=== PATIENT | female | born 1970 | race Caucasian/White ===

== ENCOUNTER 2017-11-12 21:28 | Emergency (ER) | payer SELFPAY ==
[2017-11-12 21:54] LABS: ADD MAN DIFF? NO
[2017-11-12] MEDS: METOCLOPRAMIDE HCL 10 MG/2 ML VIAL. IV (21:54)
[2017-11-12] MEDS: MORPHINE SULFATE 4 MG/ML DISP.SYRIN. IV (21:54)
[2017-11-12] MEDS: KETOROLAC 30 MG/ML INJ. IV (21:55)
[2017-11-12] MEDS: diphenhydrAMINE 50 MG/ML VIAL IVP (21:55)
[2017-11-12] MEDS: IV NORMAL SALINE 1000ML BAG 1,000 ML IV (21:55)
[2017-11-12 21:57] LABS: BASO # 0.1 x10^3/uL (0.0-0.2); BASO % 1 % (0-3); EOS # 0.2 x10^3/uL (0.0-0.7); EOS % 3 % (0-3); HEMATOCRIT 41.7 % (36.0-47.0); HEMOGLOBIN 14.1 g/dL (12.0-15.5); LYMPH # 3.7 x10^3/uL (1.0-4.8); LYMPH % 40 % (24-48); MEAN CORPUSCULAR HEMOGLOBIN 32 pg (25-35); MEAN CORPUSCULAR HGB CONC 34 g/dL (31-37); MEAN CORPUSCULAR VOLUME 95 fL (79-100); MONO # 0.5 x10^3/uL (0.0-1.1); MONO % 5 % (0-9); NEUT # 4.7 x10^3uL (1.8-7.7); NEUT % 51 % (31-73); PLATELET COUNT 256 x10^3/uL (140-400); RED CELL DISTRIBUTION WIDTH 14.1 % (11.5-14.5); WHITE BLOOD COUNT 9.1 x10^3/uL (4.0-11.0)
[2017-11-12 22:04] LABS: ANION GAP 11 (6-14); BLOOD UREA NITROGEN 19 mg/dL (7-20); BUN/CREATININE RATIO 24 (6-20); CALCIUM 9.8 mg/dL (8.5-10.1); CARBON DIOXIDE 26 mmol/L (21-32); CHLORIDE 104 mmol/L (98-107); CREATININE 0.8 mg/dL (0.6-1.0); GFR 76.6; GLUCOSE 103 mg/dL (70-99); POTASSIUM 4.2 mmol/L (3.5-5.1); SODIUM 141 mmol/L (136-145)
[2017-11-12 22:11] LABS: URINE HCG POC HCG NEGATIVE (Negative)
[2017-11-12 22:12] LABS: ALBUMIN 4.2 g/dL (3.4-5.0); ALBUMIN/GLOBULIN RATIO 1.2 (1.0-1.7); ALK PHOS 115 U/L (46-116); ALT (SGPT) 105 U/L (14-59); AST (SGOT) 39 U/L (15-37); TOTAL BILIRUBIN 0.2 mg/dL (0.2-1.0); TOTAL PROTEIN 7.8 g/dL (6.4-8.2)
[2017-11-12 22:19] LABS: BILIRUBIN,URINE NEGATIVE (NEG); CLARITY,URINE CLEAR; COLOR,URINE YELLOW; GLUCOSE,URINE NEGATIVE (NEG); NITRITE,URINE NEGATIVE (NEG); PROTEIN,URINE NEGATIVE (NEG-TRACE); UROBILINOGEN,URINE 0.2 mg/dL (0.2 mg/dL)
[2017-11-12 22:25] LABS: BACTERIA,URINE FEW /HPF (0-FEW); WBC,URINE OCC /HPF (0-4)
[2017-11-12 22:26] LABS: SQUAMOUS EPITHELIAL CELL,UR FEW /LPF
== END 2017-11-12 23:13 | disposition home or self-care (01) ==
LOC: ER 23:13
DX: R51 Headache (principal); R11.0 Nausea; G40.909 Epilepsy, unspecified, not intractable, without status epilepticus; Z90.49 Acquired absence of other specified parts of digestive tract; Z88.8 Allergy status to other drugs, medicaments and biological substances; Z88.5 Allergy status to narcotic agent
CPT/HCPCS: 36415; 70450; 80053; 81001; 81025; 85025; 96361; 96374; 96375; 99285-25; J1200; J1885; J2270; J2765; J7030

== ENCOUNTER 2018-01-04 19:10 | Emergency (ER) | payer SELFPAY, OTHER ==
[2018-01-04 20:43] LABS: ADD MAN DIFF? NO
[2018-01-04 20:44] LABS: BASO # 0.1 x10^3/uL (0.0-0.2); BASO % 1 % (0-3); EOS # 0.2 x10^3/uL (0.0-0.7); EOS % 3 % (0-3); HEMATOCRIT 40.9 % (36.0-47.0); HEMOGLOBIN 14.1 g/dL (12.0-15.5); LYMPH # 2.9 x10^3/uL (1.0-4.8); LYMPH % 33 % (24-48); MEAN CORPUSCULAR HEMOGLOBIN 32 pg (25-35); MEAN CORPUSCULAR HGB CONC 35 g/dL (31-37); MEAN CORPUSCULAR VOLUME 94 fL (79-100); MONO # 0.5 x10^3/uL (0.0-1.1); MONO % 5 % (0-9); NEUT # 5.2 x10^3uL (1.8-7.7); NEUT % 59 % (31-73); PLATELET COUNT 215 x10^3/uL (140-400); RED BLOOD COUNT 4.36 x10^6/uL (3.50-5.40); RED CELL DISTRIBUTION WIDTH 13.9 % (11.5-14.5); WHITE BLOOD COUNT 8.8 x10^3/uL (4.0-11.0)
[2018-01-04 20:57] LABS: D-DIMER < 0.27 ug/mlFEU (0.00-0.50)
[2018-01-04 20:57] LABS: ANION GAP 9 (6-14); BLOOD UREA NITROGEN 10 mg/dL (7-20); BUN/CREATININE RATIO 14 (6-20); CALCIUM 9.6 mg/dL (8.5-10.1); CARBON DIOXIDE 26 mmol/L (21-32); CHLORIDE 107 mmol/L (98-107); CREATININE 0.7 mg/dL (0.6-1.0); GFR 89.3; GLUCOSE 99 mg/dL (70-99); POTASSIUM 3.6 mmol/L (3.5-5.1); SODIUM 142 mmol/L (136-145)
[2018-01-04 21:03] LABS: ALBUMIN 3.9 g/dL (3.4-5.0); ALBUMIN/GLOBULIN RATIO 1.3 (1.0-1.7); ALK PHOS 94 U/L (46-116); ALT (SGPT) 34 U/L (14-59); AST (SGOT) 21 U/L (15-37); TOTAL BILIRUBIN 0.2 mg/dL (0.2-1.0); TOTAL PROTEIN 6.8 g/dL (6.4-8.2)
[2018-01-04 21:04] LABS: TROPONINI < 0.017 ng/mL (0.000-0.055)
[2018-01-04 21:11] LABS: THYROID STIM HORMONE (TSH) 0.786 uIU/mL (0.358-3.74)
[2018-01-05 00:28] LABS: TROPONINI < 0.017 ng/mL (0.000-0.055)
== END 2018-01-05 00:44 | disposition home or self-care (01) ==
LOC: ER 01-05 00:44
DX: R00.2 Palpitations (principal); G89.29 Other chronic pain; R03.0 Elevated blood-pressure reading, without diagnosis of hypertension; M79.602 Pain in left arm; M54.5 Low back pain; G40.909 Epilepsy, unspecified, not intractable, without status epilepticus; Z90.49 Acquired absence of other specified parts of digestive tract; Z88.5 Allergy status to narcotic agent; Z88.8 Allergy status to other drugs, medicaments and biological substances
CPT/HCPCS: 36415; 71046; 80053; 84443; 84484; 85025; 85379; 93005; 99285-25

== ENCOUNTER 2018-09-17 19:45 | Emergency (ER) | payer SELFPAY ==
[~2018-09-17] VITALS: Ht 160 cm; Wt 56.2 kg
[~2018-09-17 19:45] MED LIST: BUTA1CAP57 PO; CEPH-264 PO; HYDR-3164 PO; PHEN100C PO; PRED20TA PO
[2018-09-17] MEDS: IPRATRPIUM/ALBUTEROL 0.5/2.5MG 3 ML NEBU. NEB ONE (20:40)
--- NOTE | 2018-09-17 20:50 | PHYS DOC ---
Past Medical History Past Medical History: Seizure Additional Past Medical Histor: epilepsy, kidney infections, shingles, pinched nerve in neck Past Surgical History: Appendectomy, Additional Past Surgical Histo: L. lung collapsed Smoking: Less than 1pk/day Alcohol Use: None Drug Use: None Adult General Chief Complaint Chief Complaint: FLU SYMPTOM HPI HPI 47-year-old female resents to ER with complaints of one month history of cold- like symptoms. Patient reports today she had new onset of chest tightness which she hasn't experienced during the past month. Patient states she had been evaluated by her primary care physician on one 09/09/17 and was placed on Levaquin and prednisone. Pt reports her sxs persisted so she was evaluated by PCP yest. and was started on a Zpak. Pt reports today she woke having upper chest tightness- she denies radiation into neck or upper extremities. Patient reports she has chronic neck pain denying any acute change. Pt reports she has had chills denies fever. She has also had sore throat, fatigue, and prod. cough with yellow phlegm. She denies urinary symptoms and reports she has gone through menopause and does not have monthly cycles. Patient denies swelling in extremities. Patient denies dizziness or lightheadedness. She reports she did take naproxen earlier today with minimal relief in symptoms. She reports she is a daily cigarette smoker. She reports her mom had VT at age of 48 y/o. She denies travel. Review of Systems Review of Systems Constitutional: Denies fever. Reports fatigue and chills Eyes: Denies change in visual acuity, redness, or eye pain [] HENT: Reports sore throat and sinus congestion/drainage Respiratory: Reports prod. cough. Denies SOA Cardiovascular: Reports chest tightness GI: Denies abdominal pain, nausea, vomiting, bloody stools or diarrhea [] : Denies dysuria or hematuria [] Musculoskeletal: Denies back pain or joint pain. Reports chronic neck pain- denies acute change Integument: Denies rash, swelling or skin lesions [] Neurologic: Denies headache, focal weakness or sensory changes [] All other systems were reviewed and found to be within normal limits, except as documented in this note. Current Medications Current Medications Current Medications Medications (Trade) Dose Ordered Sig/Ifrah Start Time Stop Time Status Last Admin Dose Admin Acetaminophen/ Hydrocodone Bitart (Lortab 5/325) 1 tab 1X ONCE 09/17/18 23:00 09/17/18 23:01 DC 09/17/18 22:39 1 TAB Albuterol/ Ipratropium (Duoneb) 3 ml 1X ONCE 09/17/18 20:30 09/17/18 20:31 DC 09/17/18 20:40 3 ML Oxymetazoline HCl (Afrin) 2 spray 1X ONCE 09/17/18 23:00 09/17/18 23:01 DC 09/17/18 22:39 1 SPRAY Prednisone (Prednisone) 50 mg 1X ONCE 09/17/18 20:30 09/17/18 20:31 DC 09/17/18 21:19 50 MG Allergies Allergies Allergies Coded Allergies Type Severity Reaction Last Updated Verified carbamazepine Allergy Intermediate MUSCLE PAIN 08/08/14 Yes codeine Allergy Intermediate rash 08/08/14 Yes Physical Exam Physical Exam Constitutional: Well developed, well nourished, no acute distress, non-toxic appearance. [] HENT: Normocephalic, atraumatic, bilateral ears normal, oropharynx moist- pharyngeal/tonsillar erythema with bilat. tonsillar swelling, no oral exudates, bilat. turbinates swollen- nares patent bilat. no drainage Eyes: Pupils equal, conjunctiva normal, no discharge. [] Neck: Normal range of motion, no tenderness, supple, no stridor Cardiovascular: Heart rate regular rhythm, no murmur [] Lungs & Thorax: Bilateral breath sounds clear to auscultation- diminished in bases. Resp. equal/nonlabored Abdomen: Bowel sounds normal, soft, no tenderness Skin: Warm, dry, no erythema, no rash. [] Back: No tenderness, no CVA tenderness. [] Extremities: No tenderness, no cyanosis, no clubbing, ROM intact, no edema. [] Neurologic: Alert and oriented X 3, normal motor function, normal sensory function, no focal deficits noted. [] Psychologic: Affect normal, judgement normal, mood normal. [] Current Patient Data Vital Signs Vital Signs Date Time Temp Pulse Resp B/P (MAP) Pulse Ox O2 Delivery O2 Flow Rate FiO2 09/17/18 23:04 90 16 110/58 (75) 99 Room Air 09/17/18 19:55 98.7 98.7 Lab Values Laboratory Tests Test 09/17/18 21:26 09/17/18 22:22 Group A Streptococcus Rapid Negative (NEGATIVE) White Blood Count 11.6 x10^3/uL (4.0-11.0) H Red Blood Count 4.40 x10^6/uL (3.50-5.40) Hemoglobin 14.3 g/dL (12.0-15.5) Hematocrit 41.9 % (36.0-47.0) Mean Corpuscular Volume 95 fL (79-100) Mean Corpuscular Hemoglobin 33 pg (25-35) Mean Corpuscular Hemoglobin Concent 34 g/dL (31-37) Red Cell Distribution Width 14.6 % (11.5-14.5) H Platelet Count 230 x10^3/uL (140-400) Neutrophils (%) (Auto) 58 % (31-73) Lymphocytes (%) (Auto) 34 % (24-48) Monocytes (%) (Auto) 5 % (0-9) Eosinophils (%) (Auto) 3 % (0-3) Basophils (%) (Auto) 1 % (0-3) Neutrophils # (Auto) 6.7 x10^3uL (1.8-7.7) Lymphocytes # (Auto) 4.0 x10^3/uL (1.0-4.8) Monocytes # (Auto) 0.6 x10^3/uL (0.0-1.1) Eosinophils # (Auto) 0.3 x10^3/uL (0.0-0.7) Basophils # (Auto) 0.1 x10^3/uL (0.0-0.2) Sodium Level 141 mmol/L (136-145) Potassium Level 3.9 mmol/L (3.5-5.1) Chloride Level 103 mmol/L (98-107) Carbon Dioxide Level 26 mmol/L (21-32) Anion Gap 12 (6-14) Blood Urea Nitrogen 9 mg/dL (7-20) Creatinine 0.8 mg/dL (0.6-1.0) Estimated GFR (Cockcroft-Gault) 76.6 BUN/Creatinine Ratio 11 (6-20) Glucose Level 105 mg/dL (70-99) H Calcium Level 9.8 mg/dL (8.5-10.1) Total Bilirubin 0.2 mg/dL (0.2-1.0) Aspartate Amino Transferase (AST) 14 U/L (15-37) L Alanine Aminotransferase (ALT) 27 U/L (14-59) Alkaline Phosphatase 106 U/L (46-116) Troponin I Quantitative < 0.017 ng/mL (0.000-0.055) Total Protein 7.0 g/dL (6.4-8.2) Albumin 4.0 g/dL (3.4-5.0) Albumin/Globulin Ratio 1.3 (1.0-1.7) Laboratory Tests 09/17/18 22:22 Laboratory Tests 09/17/18 22:22 EKG EKG EKG obtained 09/17/18 at [address] Clark Sinus rhythm [place]. T wave abnorm. Rate 86 No STEMI Radiology/Procedures Radiology/Procedures PROCEDURE: CHEST PA & LATERAL Exam performed: 2 views of the chest. Indication: Chest pain and cough x a week Date of Service: 09/17/2018 8:16 PM . Comparison : Two-view chest from 01/04/2018 Findings: PA and lateral radiographs of the chest reveal a normal cardiomediastinal contour. The lungs are clear. No pleural fluid is seen. The visualized osseous structures are unremarkable. Impression: No acute cardiopulmonary process seen. Electronically signed by: Nelida Torre MD (09/17/2018 9:45 PM) [facility] DICTATED and SIGNED BY: NELIDA TORRE MD DATE: 09/17/182143 Course & Med Decision Making Course & Med Decision Making Pertinent Labs and Imaging studies reviewed. (See chart for details) 2205: Reevaluation patient reports DuoNeb treatment has improved her chest tightness and she feels like she is taking deeper breaths. Patient remains anxious when discussing ongoing symptoms and frustration. In-depth conversation had with patient regarding possible viral symptoms as her chest x-ray report had no acute findings. Patient's lungs are clear bilateral with increased air movement throughout all lung [place]. Patient has complaints of sinus pressure with headache. Patient states she had been using Flonase for the past few days but feels like it causes her symptoms to worsen. Will provide patient with dose of Afrin in bilateral nares while in the ER and then advised patient to avoid any nasal spray for the next few days to allow sinuses rest. Will also provide patient with dose of [place]. Patient is denying any shortness of air. Labs obtained by this provider which has delayed test results. Patient is in no visible distress nontoxic in appearance. Dragon Disclaimer [place] Disclaimer This electronic medical record was generated, in whole or in part, using a voice recognition dictation system. Departure Departure Impression: Primary Impression: Cough Additional Impression: Viral syndrome Disposition: 01 HOME, SELF-CARE Condition: STABLE Referrals: ROSS RABAGO APRN (PCP) Patient Instructions: Cough, Adult, Smoking Cessation, Viral Syndrome Additional Instructions: Drink plenty of water. Tylenol and/or ibuprofen as needed for pain and fever control as directed on container. Avoid nasal medications for the next few days to allow sinuses to rest. Continue use of your inhaler as prescribed. Avoid smoking. Follow-up with primary doctor as needed. Scripts Prednisone (PREDNISONE) 50 Mg Tablet 1 TAB PO DAILY, #4 TAB 0 Refills Start on 09/18/18 Prov: TREV ANNE APRN 09/17/18 Problem Qualifiers TREV ANNE APRN Sep 17, 2018 20:50
[2018-09-17] MEDS: predniSONE 10 MG TABLET PO ONE (21:19)
--- NOTE | 2018-09-17 21:49 | RAD ---
Exam performed: 2 views of the chest. Indication: Chest pain and cough x a week Date of Service: 09/17/2018 8:16 PM . Comparison : Two-view chest from 01/04/2018 Findings: PA and lateral radiographs of the chest reveal a normal cardiomediastinal contour. The lungs are clear. No pleural fluid is seen. The visualized osseous structures are unremarkable. Impression: No acute cardiopulmonary process seen. Electronically signed by: Nelida Torre MD (09/17/2018 9:45 PM) [facility]
[2018-09-17 22:36] LABS: BASO # 0.1 x10^3/uL (0.0-0.2); BASO % 1 % (0-3); EOS # 0.3 x10^3/uL (0.0-0.7); EOS % 3 % (0-3); HEMATOCRIT 41.9 % (36.0-47.0); HEMOGLOBIN 14.3 g/dL (12.0-15.5); LYMPH % 34 % (24-48); MEAN CORPUSCULAR HEMOGLOBIN 33 pg (25-35); MEAN CORPUSCULAR HGB CONC 34 g/dL (31-37); MEAN CORPUSCULAR VOLUME 95 fL (79-100); MONO # 0.6 x10^3/uL (0.0-1.1); MONO % 5 % (0-9); NEUT # 6.7 x10^3uL (1.8-7.7); NEUT % 58 % (31-73); PLATELET COUNT 230 x10^3/uL (140-400); RED CELL DISTRIBUTION WIDTH 14.6 % (11.5-14.5); WHITE BLOOD COUNT 11.6 x10^3/uL (4.0-11.0)
[2018-09-17] MEDS: HYDROcodone/APAP 5/325MG 1 TAB TABLET PO ONE (22:39)
[2018-09-17] MEDS: OXYMETAZOLINE 0.05% NASAL SPRAY 30ML BOTTLE. NS ONE (22:39)
[2018-09-17 22:47] LABS: CALCIUM 9.8 mg/dL (8.5-10.1); CREATININE 0.8 mg/dL (0.6-1.0); GFR 76.6; POTASSIUM 3.9 mmol/L (3.5-5.1)
[2018-09-17 22:51] LABS: ALBUMIN/GLOBULIN RATIO 1.3 (1.0-1.7); TOTAL BILIRUBIN 0.2 mg/dL (0.2-1.0)
[2018-09-17 23:04] VITALS: BP 110/58
[2018-09-17] MEDS ORDERED: PRED50TA PO (23:17)
--- NOTE | 2018-09-20 11:34 | EKG ---
[facility] [address] [place] [address] Test Date: 2018-09-17 Test Time: 20:32:54 Pat Name: JEFRY RASHID Department: Room: Gender: F Form Raiser: : [phone] Requested By: TREV ANNE Order Number: [id number] Reading MD: Measurements Intervals [place] Rate: 86 P: 29 KS: 130 QRS: 74 QRSD: 86 T: 17 QT: 320 QTc: 385 Interpretive Statements SINUS RHYTHM NON SPECIFIC T ABNORMALITY BORDERLINE ECG No previous ECG available for comparison
== END 2018-09-17 23:25 | disposition home or self-care (01) ==
LOC: ER 19:45
DX: B34.9 Viral infection, unspecified (principal); R05 Cough; R07.89 Other chest pain; G89.29 Other chronic pain; M54.2 Cervicalgia; F17.210 Nicotine dependence, cigarettes, uncomplicated; Z90.89 Acquired absence of other organs; Z98.890 Other specified postprocedural states; Z88.8 Allergy status to other drugs, medicaments and biological substances; Z88.5 Allergy status to narcotic agent
CPT/HCPCS: 36415; 71046; 80053; 84484; 85025; 87070; 87880; 93005; 94640; J7512; J7620; 99284-25

== ENCOUNTER 2018-09-24 17:19 | Emergency (ER) | payer SELFPAY ==
[~2018-09-24] VITALS: Ht 160 cm; Wt 56.2 kg
[~2018-09-24 17:19] MED LIST changes: +PRED50TA PO
[2018-09-24 18:51] VITALS: BP 122/76
[2018-09-24] MEDS ORDERED: HYDR-2761 PO (19:28)
[2018-09-24] MEDS ORDERED: PRED50TA PO (19:28)
--- NOTE | 2018-09-24 19:28 | PHYS DOC ---
Past Medical History Past Medical History: Seizure Additional Past Medical Histor: epilepsy, kidney infections, shingles, pinched nerve in neck Past Surgical History: Appendectomy, Additional Past Surgical Histo: L. lung collapsed Alcohol Use: None Drug Use: None Adult General Chief Complaint Chief Complaint: FACE PAIN HPI HPI Patient is a 47 year old [f__sex] who presents with [] Review of Systems Review of Systems Constitutional: Denies fever or chills [] Eyes: Denies change in visual acuity, redness, or eye pain [] HENT: Denies nasal congestion or sore throat [] Respiratory: Denies cough or shortness of breath [] Cardiovascular: No additional information not addressed in HPI [] GI: Denies abdominal pain, nausea, vomiting, bloody stools or diarrhea [] : Denies dysuria or hematuria [] Musculoskeletal: Denies back pain or joint pain [] Integument: Denies rash or skin lesions [] Neurologic: Denies headache, focal weakness or sensory changes [] Endocrine: Denies polyuria or polydipsia [] All other systems were reviewed and found to be within normal limits, except as documented in this note. Allergies Allergies Allergies Coded Allergies Type Severity Reaction Last Updated Verified carbamazepine Allergy Intermediate MUSCLE PAIN 08/08/14 Yes codeine Allergy Intermediate rash 08/08/14 Yes Physical Exam Physical Exam Constitutional: Well developed, well nourished, no acute distress, non-toxic appearance. [] HENT: Normocephalic, atraumatic, bilateral external ears normal, oropharynx moist, no oral exudates, nose normal. [] Eyes: PERRLA, EOMI, conjunctiva normal, no discharge. [] Neck: Normal range of motion, no tenderness, supple, no stridor. [] Cardiovascular:Heart rate regular rhythm, no murmur [] Lungs & Thorax: Bilateral breath sounds clear to auscultation [] Abdomen: Bowel sounds normal, soft, no tenderness, no masses, no pulsatile masses. [] Skin: Warm, dry, no erythema, no rash. [] Back: No tenderness, no CVA tenderness. [] Extremities: No tenderness, no cyanosis, no clubbing, ROM intact, no edema. [] Neurologic: Alert and oriented X 3, normal motor function, normal sensory function, no focal deficits noted. [] Psychologic: Affect normal, judgement normal, mood normal. [] Current Patient Data Vital Signs Vital Signs Date Time Temp Pulse Resp B/P (MAP) Pulse Ox O2 Delivery O2 Flow Rate FiO2 09/24/18 18:51 98.6 118 122/76 (91) 98 98.6 09/24/18 18:40 20 Room Air EKG EKG [] Radiology/Procedures Radiology/Procedures [] Course & Med Decision Making Course & Med Decision Making Pertinent Labs and Imaging studies reviewed. (See chart for details) [] Dragon Disclaimer Dragon Disclaimer This electronic medical record was generated, in whole or in part, using a voice recognition dictation system. Departure Departure Impression: Primary Impression: Frontal sinus pain Additional Impressions: Acute maxillary sinusitis, unspecified Sinus pressure Disposition: HOME, SELF-CARE Condition: STABLE Referrals: NUNO CALLE MD Patient Instructions: Sinus Headache, [place] Additional Instructions: Fill the prescription and use as directed. Follow up with Dr. Calle for further evaluation of chronic sinus problems and pain. Scripts Hydrocodone Bit/Acetaminophen (HYDROCODONE-APAP 5-325 ) 1 Tab Tablet 1 TAB PO PRN Q6HRS PRN for PAIN for 3 Days, #12 TAB 0 Refills Prov: CHEMO WRIGHT [employer]ADER 09/24/18 Prednisone (PREDNISONE) 50 Mg Tablet 1 TAB PO DAILY, #5 TAB 0 Refills Prov: [employer] WR[employer] LEADER 09/24/18 Problem Qualifiers Additional Impressions: Acute maxillary sinusitis, unspecified Recurrence: recurrent Qualified Codes: J01.01 - Acute recurrent maxillary sinusitis [employer] WR[employer]ER Sep 24, 2018 19:28
== END 2018-09-24 20:57 | disposition home or self-care (01) ==
LOC: ER 17:19
DX: J01.01 Acute recurrent maxillary sinusitis (principal); J01.10 Acute frontal sinusitis, unspecified; Z90.89 Acquired absence of other organs; Z98.890 Other specified postprocedural states; Z88.5 Allergy status to narcotic agent; Z88.8 Allergy status to other drugs, medicaments and biological substances
CPT/HCPCS: 99283

== ENCOUNTER 2018-11-27 14:05 | Emergency (ER) | payer SELFPAY ==
[~2018-11-27] VITALS: Ht 160 cm; Wt 56.2 kg
[~2018-11-27 14:05] MED LIST changes: +HYDR-2761 PO
--- NOTE | 2018-11-27 15:22 | PHYS DOC ---
Past Medical History Past Medical History: Seizure Additional Past Medical Histor: epilepsy, kidney infections, shingles, pinched nerve in neck Past Surgical History: No Surgical History, Appendectomy, Additional Past Surgical Histo: L. lung collapsed Alcohol Use: None Drug Use: None Adult General Chief Complaint Chief Complaint: ABDOMINAL PAIN HPI HPI Patient is a 48 year old female who presents to the emergency room with complaints of diffuse abdominal pain and bloating for the last 2 weeks. She reports nausea, and a decreased appetite in addition to fluctuating stools consisting of diarrhea, soft stools, and constipation. She denies any rectal bleeding. She states she has had lots of gas and her primary care doctor sent her for a pelvic ultrasound on November 16, 2018. Patient reports that the ultrasound revealed normal ovaries and no acute findings. Currently, she rates her pain 8 out of 10 on the pain scale she states there are no alleviating or aggravating factors. She does have a previous diagnosis of irritable bowel syndrome, and polyps in her colon. Review of Systems Review of Systems Constitutional: Denies fever or chills [] Eyes: Denies changes HENT: Denies nasal congestion or sore throat [] Respiratory: Denies cough or shortness of breath [] Cardiovascular: No additional information not addressed in HPI [] GI: See history of present illness : Denies dysuria or hematuria [] Musculoskeletal: Denies back pain Integument: Denies rash or skin lesions [] Neurologic: Denies headache Current Medications Current Medications Current Medications Medications (Trade) Dose Ordered Sig/Ifrah Start Time Stop Time Status Last Admin Dose Admin Fentanyl Citrate (Fentanyl 2ml Vial) 50 mcg 1X ONCE 11/27/18 15:45 11/27/18 15:48 DC 11/27/18 16:08 50 MCG Info (CONTRAST GIVEN -- Rx MONITORING) 1 each PRN DAILY PRN 11/27/18 16:15 11/29/18 16:14 Iohexol (Omnipaque 300 Mg/ml) 75 ml 1X ONCE 11/27/18 16:15 11/27/18 16:16 DC 11/27/18 16:15 75 ML Ondansetron HCl (Zofran) 4 mg 1X ONCE 11/27/18 15:45 11/27/18 15:48 DC 11/27/18 16:07 4 MG Sodium Chloride 1,000 ml @ 1,000 mls/hr 1X ONCE 11/27/18 15:45 11/27/18 16:44 DC 11/27/18 16:09 1,000 MLS/HR Allergies Allergies Allergies Coded Allergies Type Severity Reaction Last Updated Verified carbamazepine Allergy Intermediate MUSCLE PAIN 08/08/14 Yes codeine Allergy Intermediate rash 08/08/14 Yes Physical Exam Physical Exam Constitutional: Well developed, well nourished, no acute distress, non-toxic appearance. [] HENT: Normocephalic, atraumatic, bilateral external ears normal, oropharynx moist, no oral exudates, nose normal. [] Eyes: PERRLA, conjunctiva normal, no discharge. [] Neck: Normal range of motion, no tenderness, supple, no stridor. [] Cardiovascular:Heart rate regular rhythm, no murmur [] Lungs & Thorax: Bilateral breath sounds clear to auscultation [] Abdomen: Bowel sounds normal, soft, no masses, no pulsatile masses; left upper and lower quadrant tenderness to palpation, no guarding, no rebound tenderness Skin: Warm, dry, no erythema, no rash. [] Extremities: No cyanosis, ROM intact, no edema. [] Neurologic: Alert and oriented X 3, no focal deficits noted. [] Psychologic: Affect normal, judgement normal, mood normal. [] Current Patient Data Vital Signs Vital Signs Date Time Temp Pulse Resp B/P (MAP) Pulse Ox O2 Delivery O2 Flow Rate FiO2 11/27/18 16:08 16 98 11/27/18 14:13 98.6 108 137/76 (96) Room Air 98.6 Lab Values Laboratory Tests Test 11/27/18 15:17 11/27/18 15:50 Urine Collection Type Unknown Urine Color Yellow Urine Clarity Clear Urine pH 8.0 Urine Specific [place] 1.010 Urine Protein Negative mg/dL (NEG-TRACE) Urine Glucose (UA) Negative mg/dL (NEG) Urine Ketones (Stick) Negative mg/dL (NEG) Urine Blood Trace (NEG) Urine Nitrite Negative (NEG) Urine Bilirubin Negative (NEG) Urine Urobilinogen Dipstick 0.2 mg/dL (0.2 mg/dL) Urine Leukocyte Esterase Trace (NEG) Urine RBC 1-2 /HPF (0-2) Urine WBC Occ /HPF (0-4) Urine Squamous Epithelial Cells Mod /LPF Urine Bacteria Moderate /HPF (0-FEW) White Blood Count 7.4 x10^3/uL (4.0-11.0) Red Blood Count 4.51 x10^6/uL (3.50-5.40) Hemoglobin 14.3 g/dL (12.0-15.5) Hematocrit 42.8 % (36.0-47.0) Mean Corpuscular Volume 95 fL (79-100) Mean Corpuscular Hemoglobin 32 pg (25-35) Mean Corpuscular Hemoglobin Concent 33 g/dL (31-37) Red Cell Distribution Width 14.0 % (11.5-14.5) Platelet Count 218 x10^3/uL (140-400) Neutrophils (%) (Auto) 57 % (31-73) Lymphocytes (%) (Auto) 35 % (24-48) Monocytes (%) (Auto) 6 % (0-9) Eosinophils (%) (Auto) 3 % (0-3) Basophils (%) (Auto) 1 % (0-3) Neutrophils # (Auto) 4.2 x10^3uL (1.8-7.7) Lymphocytes # (Auto) 2.6 x10^3/uL (1.0-4.8) Monocytes # (Auto) 0.4 x10^3/uL (0.0-1.1) Eosinophils # (Auto) 0.2 x10^3/uL (0.0-0.7) Basophils # (Auto) 0.0 x10^3/uL (0.0-0.2) Sodium Level 139 mmol/L (136-145) Potassium Level 4.5 mmol/L (3.5-5.1) Chloride Level 102 mmol/L (98-107) Carbon Dioxide Level 29 mmol/L (21-32) Anion Gap 8 (6-14) Blood Urea Nitrogen 7 mg/dL (7-20) Creatinine 0.7 mg/dL (0.6-1.0) Estimated GFR (Cockcroft-Gault) 88.9 BUN/Creatinine Ratio 10 (6-20) Glucose Level 102 mg/dL (70-99) H Calcium Level 9.3 mg/dL (8.5-10.1) Total Bilirubin 0.3 mg/dL (0.2-1.0) Aspartate Amino Transferase (AST) 18 U/L (15-37) Alanine Aminotransferase (ALT) 24 U/L (14-59) Alkaline Phosphatase 76 U/L (46-116) Total Protein 6.9 g/dL (6.4-8.2) Albumin 4.0 g/dL (3.4-5.0) Albumin/Globulin Ratio 1.4 (1.0-1.7) Lipase 161 U/L (73-393) Laboratory Tests 11/27/18 15:50 Laboratory Tests 11/27/18 15:50 EKG EKG [] Radiology/Procedures Radiology/Procedures PROCEDURE: CT ABD PELV W/ IV CONTRST ONLY CT abdomen pelvis with contrast dated 11/27/2018. Comparison made to 02/21/2015. Clinical indication: Left-sided abdominal pain. TECHNIQUE: Contiguous axial imaging of the abdomen and pelvis performed after the administration of 75 cc Omnipaque 300. One or more of the following individualized dose reduction techniques were utilized for this examination: 1. Automated exposure control 2. Adjustment of the mA and/or kV according to patient size 3. Use of iterative reconstruction technique. FINDINGS: Limited images of lung bases show mild emphysema. Minimal linear opacity in the lower lobes, likely scar or atelectasis. Liver, spleen, pancreas, adrenal glands, gallbladder and kidneys are unremarkable. No hydronephrosis. Mild cortical scarring at the midpole right kidney, unchanged. Unopacified GI tract normal in caliber and contour. No focal bowel wall thickening. No inflammatory stranding in the mesentery. No ascites or lymphadenopathy. Abdominal aorta normal in caliber. There are a few scattered diverticula within the distal colon. The appendix is not clearly identified. No inflammatory changes in the right lower quadrant. There is a pelvis show mildly distended urinary bladder. Uterus and adnexa are unremarkable. No free fluid or lymphadenopathy. Bone windows show no acute findings. IMPRESSION: 1. No acute abnormality of abdomen or pelvis. 2. Minimal diverticulosis with no evidence of acute diverticulitis.[] Course & Med Decision Making Course & Med Decision Making Pertinent Labs and Imaging studies reviewed. (See chart for details) dx: non specific abdominal pain, IBS Ddx: pancreatitis, SBO, gastritis, diverticulitis, UTI, kidney stone, hernia Labs and CT were not concerning for any acute findings. Encouraged pt to follow up with GI doctor for further evaluation, [] Dragon Disclaimer Dragon Disclaimer This electronic medical record was generated, in whole or in part, using a voice recognition dictation system. Departure Departure Impression: Primary Impression: Abdominal pain Additional Impression: IBS (irritable bowel syndrome) Disposition: 01 HOME, SELF-CARE Condition: STABLE Referrals: ROSS RABAGO APRN (PCP) AG PURDY MD Patient Instructions: Abdominal Pain (Nonspecific), Irritable Bowel Syndrome- Brief Additional Instructions: Follow up with Dr. Purdy for further evaluation of ongoing abdominal pain. Return to the ER if symptoms worsen. Problem Qualifiers Primary Impression: Abdominal pain Abdominal location: unspecified location Qualified Codes: R10.9 - Unspecified abdominal pain Additional Impression: IBS (irritable bowel syndrome) Irritable bowel syndrome type: with both diarrhea and constipation Qualified Codes: K58.2 - Mixed irritable bowel syndrome CHEMO WRIGHT APRN Nov 27, 2018 15:22
[2018-11-27] MEDS ORDERED: fentaNYL PF VIAL 100 MCG/2 ML VIAL IV ONE ×2 (15:45→18:00)
[2018-11-27] MEDS ORDERED: ONDANSETRON PF 4 MG/2 ML VIAL. IV ONE (15:45)
[2018-11-27] MEDS ORDERED: IV NORMAL SALINE 1000ML BAG 1,000 ML IV ONE (15:45)
[2018-11-27 15:56] LABS: BILIRUBIN,URINE NEGATIVE (NEG); CLARITY,URINE CLEAR; COLOR,URINE YELLOW; NITRITE,URINE NEGATIVE (NEG); PROTEIN,URINE NEGATIVE (NEG-TRACE); UROBILINOGEN,URINE 0.2 mg/dL (0.2 mg/dL)
[2018-11-27 16:05] LABS: BACTERIA,URINE MODERATE /HPF (0-FEW); SQUAMOUS EPITHELIAL CELL,UR MOD /LPF
[2018-11-27 16:06] LABS: WBC,URINE OCC /HPF (0-4)
[2018-11-27 16:07] LABS: BASO % 1 % (0-3); EOS # 0.2 x10^3/uL (0.0-0.7); EOS % 3 % (0-3); HEMATOCRIT 42.8 % (36.0-47.0); HEMOGLOBIN 14.3 g/dL (12.0-15.5); LYMPH # 2.6 x10^3/uL (1.0-4.8); LYMPH % 35 % (24-48); MEAN CORPUSCULAR HEMOGLOBIN 32 pg (25-35); MEAN CORPUSCULAR HGB CONC 33 g/dL (31-37); MEAN CORPUSCULAR VOLUME 95 fL (79-100); MONO # 0.4 x10^3/uL (0.0-1.1); MONO % 6 % (0-9); NEUT # 4.2 x10^3uL (1.8-7.7); NEUT % 57 % (31-73); PLATELET COUNT 218 x10^3/uL (140-400); RED BLOOD COUNT 4.51 x10^6/uL (3.50-5.40); WHITE BLOOD COUNT 7.4 x10^3/uL (4.0-11.0)
[2018-11-27 16:14] LABS: CALCIUM 9.3 mg/dL (8.5-10.1); CREATININE 0.7 mg/dL (0.6-1.0); GFR 88.9; POTASSIUM 4.5 mmol/L (3.5-5.1)
[2018-11-27] MEDS ORDERED: IOHEXOL 300 MG/ML 100ML VIAL. IV ONE (16:15)
[2018-11-27] MEDS ORDERED: CONTRAST GIVEN. MC PRN (16:15)
[2018-11-27 16:20] LABS: ALBUMIN/GLOBULIN RATIO 1.4 (1.0-1.7); TOTAL BILIRUBIN 0.3 mg/dL (0.2-1.0); TOTAL PROTEIN 6.9 g/dL (6.4-8.2)
--- NOTE | 2018-11-27 17:15 | RAD ---
CT abdomen pelvis with contrast dated 11/27/2018. Comparison made to 02/21/2015. Clinical indication: Left-sided abdominal pain. TECHNIQUE: Contiguous axial imaging of the abdomen and pelvis performed after the administration of 75 cc Omnipaque 300. One or more of the following individualized dose reduction techniques were utilized for this examination: 1. Automated exposure control 2. Adjustment of the mA and/or kV according to patient size 3. Use of iterative reconstruction technique. FINDINGS: Limited images of lung bases show mild emphysema. Minimal linear opacity in the lower lobes, likely scar or atelectasis. Liver, spleen, pancreas, adrenal glands, gallbladder and kidneys are unremarkable. No hydronephrosis. Mild cortical scarring at the midpole right kidney, unchanged. Unopacified GI tract normal in caliber and contour. No focal bowel wall thickening. No inflammatory stranding in the mesentery. No ascites or lymphadenopathy. Abdominal aorta normal in caliber. There are a few scattered diverticula within the distal colon. The appendix is not clearly identified. No inflammatory changes in the right lower quadrant. There is a pelvis show mildly distended urinary bladder. Uterus and adnexa are unremarkable. No free fluid or lymphadenopathy. Bone windows show no acute findings. IMPRESSION: 1. No acute abnormality of abdomen or pelvis. 2. Minimal diverticulosis with no evidence of acute diverticulitis. Electronically signed by: Jay Flanagan MD (11/27/2018 5:10 PM) [facility]
[2018-11-27 17:44] VITALS: BP 135/78
== END 2018-11-27 18:12 | disposition home or self-care (01) ==
LOC: ER 14:05
DX: K58.2 Mixed irritable bowel syndrome (principal); R19.7 Diarrhea, unspecified; K59.00 Constipation, unspecified; R11.0 Nausea; Z90.89 Acquired absence of other organs; Z98.890 Other specified postprocedural states; Z88.5 Allergy status to narcotic agent; Z88.8 Allergy status to other drugs, medicaments and biological substances
CPT/HCPCS: 36415; 74177; 80053; 81001; 83690; 85025; 87086; 96361; 96374; 96375; 96376; 99284; J2405; J3010; J7030; Q9967

== ENCOUNTER 2019-03-01 15:44 | Emergency (ER) | payer SELFPAY ==
[~2019-03-01] VITALS: Ht 160 cm; Wt 64.4 kg
[2019-03-01] MEDS ORDERED: NAPROXEN 500 MG TABLET PO STA (15:58)
[2019-03-01] MEDS ORDERED: ONDANSETRON ODT 4 MG TAB.RAPDIS. PO ONE (16:00)
[2019-03-01] MEDS ORDERED: diazePAM 5 MG TABLET PO ONE (16:00)
[2019-03-01] MEDS ORDERED: fentaNYL PF VIAL 100 MCG/2 ML VIAL IM ONE (16:00)
[2019-03-01] MEDS ORDERED: predniSONE 10 MG TABLET PO ONE (16:00)
--- NOTE | 2019-03-01 16:08 | PHYS DOC ---
Past Medical History Past Medical History: Seizure Additional Past Medical Histor: epilepsy, kidney infections, shingles, pinched nerve in neck Past Surgical History: No Surgical History, Appendectomy, Additional Past Surgical Histo: L. lung collapsed Alcohol Use: None Drug Use: None Adult General Chief Complaint Chief Complaint: GENERALIZED BODY ACHES [facility] HPI Patient is a 48 year old female with history of spine pain presenting to the ED today complaining of exacerbation of chronic in throughout her body. She states she follows up with her own PCP for this pain and was seen on Wednesday, she states the PCP adjusted her medications including giving her gabapentin, Lyrica, tramadol and instructed her to follow-up with the spine center at [facility]. She states she has an appointment on March 29, 2019. She states today she feels her pain is shooting throughout her body which is not unusual. She states any pa rt of her body that she touches is sore and painful, she states she has been told she could have fibromyalgia. Review of Systems Review of Systems Constitutional: Denies fever or chills [] Eyes: Denies change in visual acuity, redness, or eye pain [] HENT: Denies nasal congestion or sore throat [] Respiratory: Denies cough or shortness of breath [] Cardiovascular: No additional information not addressed in HPI [] GI: Denies abdominal pain, nausea, vomiting, bloody stools or diarrhea [] : Denies dysuria or hematuria [] Musculoskeletal: Reports spine pain. Integument: Denies rash or skin lesions [] Neurologic: Denies headache, focal weakness or sensory changes [] [] All other systems were reviewed and found to be within normal limits, except as documented in this note. Allergies Allergies Allergies Coded Allergies Type Severity Reaction Last Updated Verified carbamazepine Allergy Intermediate MUSCLE PAIN 08/08/14 Yes codeine Allergy Intermediate rash 08/08/14 Yes Physical Exam Physical Exam Constitutional: Well developed, well nourished, no acute distress, non-toxic appearance. [] HENT: Normocephalic, atraumatic, bilateral external ears normal, oropharynx moist, no oral exudates, nose normal. [] Eyes: PERRLA, EOMI, conjunctiva normal, no discharge. [] Neck: Normal range of motion, no tenderness, supple, no stridor. [] Cardiovascular:Heart rate regular rhythm, no murmur [] Lungs & Thorax: Bilateral breath sounds clear to auscultation [] Abdomen: Bowel sounds normal, soft, no tenderness, no masses, no pulsatile masses. [] Skin: Warm, dry, no erythema, no rash. [] Back: Tenderness throughout her body including the entire spine tenderness, no CVA tenderness. [] Extremities: No tenderness, no cyanosis, no clubbing, ROM intact, no edema. [] Neurologic: Alert and oriented X 3, normal motor function, normal sensory funct ion, no focal deficits noted. Psychologic: Tearful, depressed mood EKG EKG [] Radiology/Procedures Radiology/Procedures [] Course & Med Decision Making Course & Med Decision Making Pertinent Labs and Imaging studies reviewed. (See chart for details) This is a 48-year-old female patient with word known history of spine pain and what sounds like fibromyalgia presenting to the ED today complaining of exacerbation of her pain. No known injury. No cauda equina syndrome symptoms. Patient was provided pain relief in the ED and discharged to home. Instructed to continue taking her pain medications including tramadol, Lyrica and gabapentin and follow-up with the spine doctor as scheduled on March 29, 2019. Dragon Disclaimer Dragon Disclaimer This electronic medical record was generated, in whole or in part, using a voice recognition dictation system. Departure Departure Impression: Primary Impression: Chronic pain Disposition: HOME, SELF-CARE Condition: STABLE Referrals: ROSS RABAGO APRN (PCP) Follow-up with your doctor as well as the spine center Patient Instructions: Musculoskeletal Pain Additional Instructions: You were evaluated in the emergency room with what appears to be chronic pain. We highly recommend you follow-up with the spine center as recommended by your primary care doctor. Continue taking your medications at home. Come back to the ED at any point symptoms worsen. Problem Qualifiers Primary Impression: Chronic pain Chronic pain type: other chronic pain Qualified Codes: G89.29 - Other chronic pain PRIMO MACHUCA APRN Mar 01, 2019 16:08
[2019-03-01 17:00] VITALS: BP 128/63
== END 2019-03-01 17:00 | disposition home or self-care (01) ==
LOC: ER 15:44
DX: G89.29 Other chronic pain (principal); M54.89 Other dorsalgia; G40.909 Epilepsy, unspecified, not intractable, without status epilepticus; Z90.89 Acquired absence of other organs; Z87.448 Personal history of other diseases of urinary system; Z88.5 Allergy status to narcotic agent; Z88.8 Allergy status to other drugs, medicaments and biological substances
CPT/HCPCS: 96372; 99284; J3010; J7512; Q0162

== ENCOUNTER 2019-11-04 15:30 | Emergency (ER) | payer OTHER ==
[~2019-11-04] VITALS: Ht 160 cm; Wt 70.4 kg
[2019-11-04 16:02] VITALS: BP 134/62
--- NOTE | 2019-11-04 16:07 | PHYS DOC ---
Past Medical History Past Medical History: Seizure Additional Past Medical Histor: epilepsy, kidney infections, shingles, pinched nerve in neck Past Surgical History: No Surgical History, Appendectomy, Additional Past Surgical Histo: L. lung collapsed Smoking Status: Current Every Day Smoker Alcohol Use: None Drug Use: None Adult General Chief Complaint Chief Complaint: LOWER EXTREMITY EDEMA HPI HPI Patient is a 49 year old female with a history of degenerative disc disease, now with pain throughout her body, who presents to the ED today complaining of right lower extremity swelling and pain rated as moderate worse on weightbearing that began a couple days ago. Patient denies any known injury. Denies any personal family history of DVTs. Denies any recent hospitalizations or travel. Denies any surgeries recently. She reports she took tramadol with no relief. Review of Systems Review of Systems Constitutional: Denies fever or chills [] Musculoskeletal: Reports right lower extremity swelling Integument: Denies rash or skin lesions [] Neurologic: Denies headache, focal weakness or sensory changes [] All other systems were reviewed and found to be within normal limits, except as documented in this note. Current Medications Current Medications Current Medications Medications (Trade) Dose Ordered Sig/Ifrah Start Time Stop Time Status Last Admin Dose Admin Tramadol HCl (Ultram) 50 mg 1X ONCE 11/04/19 16:30 11/04/19 16:31 DC 11/04/19 16:28 50 MG Allergies Allergies Allergies Coded Allergies Type Severity Reaction Last Updated Verified carbamazepine Allergy Intermediate MUSCLE PAIN 08/08/14 Yes codeine Allergy Intermediate rash 08/08/14 Yes Physical Exam Physical Exam Constitutional: Well developed, well nourished, no acute distress, non-toxic appearance. [] Abdomen: Bowel sounds normal, soft, no tenderness, no masses, no pulsatile masses. [] Skin: Warm, dry, no erythema, no rash. [] Back: No tenderness, no CVA tenderness. [] Extremities: Patient's bilateral lower extremities were examined, there was no obvious swelling on either side of the extremity. No obvious redness or warmth. Negative Homans sign bilaterally. +2 bilateral pedal pulses. Range of motion intact to bilateral lower extremities. Neurologic: Alert and oriented X 3, normal motor function, normal sensory function, no focal deficits noted. [] Psychologic: Affect normal, judgement normal, mood normal. [] Current Patient Data Vital Signs Vital Signs Date Time Temp Pulse Resp B/P (MAP) Pulse Ox O2 Delivery O2 Flow Rate FiO2 11/04/19 16:02 97.6 99 18 134/62 (86) 99 Room Air 97.6 EKG EKG [] Radiology/Procedures Radiology/Procedures []PROCEDURE: VENOUS LOWER EXTREMITY RIGHT Exam: Right lower extremity venous duplex study INDICATION: Leg swelling TECHNIQUE: Using a combination of real-time ultrasound imaging and color-flow and pulse Doppler imaging techniques along with graded compression and augmentation, duplex evaluation of the deep venous systems of rightlower extremity was performed. Multiple images were obtained. Findings: There is no sonographic evidence for deep venous thrombosis involving the visualized deep venous structures of the right lower extremity. IMPRESSION: No acute DVT in the right lower extremities. Electronically signed by: Elan Caban MD (11/04/2019 6:12 PM) [id number] DICTATED and SIGNED BY: ELAN CABAN MD DATE: 11/04/191811 Course & Med Decision Making Course & Med Decision Making Pertinent Labs and Imaging studies reviewed. (See chart for details) This is a 49-year-old female patient presenting to the ED today with right lower extremity swelling for couple days. No obvious swelling noted on bilateral lower extremities. Venous Doppler of the right lower extremity is negative for any acute findings. Compression stockings recommended. Ice elevation recommended. Discharge to home Dragon Disclaimer Dragon Disclaimer This electronic medical record was generated, in whole or in part, using a voice recognition dictation system. Departure Departure Impression: Primary Impression: Edema Disposition: 01 HOME, SELF-CARE Condition: STABLE Referrals: ROSS RABAGO APRN (PCP) follow up with your docto rin 1-2 weeks Patient Instructions: Edema Additional Instructions: Please ice and elevate your extremity. Please wear compression stockings and follow up with your doctor in 1-2 weeks Problem Qualifiers Primary Impression: Edema Edema type: unspecified Qualified Codes: R60.9 - Edema, unspecified PRIMO MACHUCA APRN Nov 04, 2019 16:07
[2019-11-04] MEDS ORDERED: traMADol 50 MG TABLET PO ONE (16:30)
--- NOTE | 2019-11-04 18:15 | RAD ---
Exam: Right lower extremity venous duplex study INDICATION: Leg swelling TECHNIQUE: Using a combination of real-time ultrasound imaging and color-flow and pulse Doppler imaging techniques along with graded compression and augmentation, duplex evaluation of the deep venous systems of rightlower extremity was performed. Multiple images were obtained. Findings: There is no sonographic evidence for deep venous thrombosis involving the visualized deep venous structures of the right lower extremity. IMPRESSION: No acute DVT in the right lower extremities. Electronically signed by: Elan Horvath MD (11/04/2019 6:12 PM) [id number]
== END 2019-11-04 18:37 | disposition home or self-care (01) ==
LOC: ER 15:30
DX: G40.909 Epilepsy, unspecified, not intractable, without status epilepticus (principal); R60.0 Localized edema; F17.200 Nicotine dependence, unspecified, uncomplicated; Z90.89 Acquired absence of other organs; Z88.5 Allergy status to narcotic agent; Z88.8 Allergy status to other drugs, medicaments and biological substances
CPT/HCPCS: 93971; 99284-25

== ENCOUNTER 2019-11-27 15:53 | Emergency (ER) | payer OTHER ==
[~2019-11-27] VITALS: Ht 160 cm; Wt 75.0 kg
[2019-11-27 17:54] LABS: BASO # 0.1 x10^3/uL (0.0-0.2); BASO % 1 % (0-3); EOS # 0.1 x10^3/uL (0.0-0.7); EOS % 1 % (0-3); HEMATOCRIT 43.4 % (36.0-47.0); HEMOGLOBIN 14.9 g/dL (12.0-15.5); LYMPH # 2.2 x10^3/uL (1.0-4.8); LYMPH % 22 % (24-48); MEAN CORPUSCULAR HEMOGLOBIN 32 pg (25-35); MEAN CORPUSCULAR HGB CONC 34 g/dL (31-37); MEAN CORPUSCULAR VOLUME 95 fL (79-100); MONO # 0.5 x10^3/uL (0.0-1.1); MONO % 5 % (0-9); NEUT # 7.2 x10^3/uL (1.8-7.7); NEUT % 71 % (31-73); PLATELET COUNT 236 x10^3/uL (140-400); RED BLOOD COUNT 4.58 x10^6/uL (3.50-5.40); RED CELL DISTRIBUTION WIDTH 14.4 % (11.5-14.5)
--- NOTE | 2019-11-27 17:56 | RAD ---
Single view chest dated 11/27/2019. Comparison made to 09/17/2018. Clinical data indication: Shortness of breath. FINDINGS: Single upright portable exam performed. Heart and mediastinal contours are stable. Lungs are clear. No consolidation or pleural effusion. No pneumothorax. IMPRESSION: No acute radiographic abnormality Electronically signed by: Jay Flanagan MD (11/27/2019 5:53 PM) [id number]
[2019-11-27 18:33] VITALS: BP 122/56
[2019-11-27 18:42] LABS: BILIRUBIN,URINE NEGATIVE (NEG); CLARITY,URINE CLOUDY; COLOR,URINE YELLOW; NITRITE,URINE NEGATIVE (NEG); PROTEIN,URINE NEGATIVE (NEG-TRACE); UROBILINOGEN,URINE 0.2 mg/dL (0.2 mg/dL)
--- NOTE | 2019-11-27 18:57 | PHYS DOC ---
Past Medical History Past Medical History: Seizure Additional Past Medical Histor: epilepsy, kidney infections, shingles, pinched nerve in neck Past Surgical History: Appendectomy, Additional Past Surgical Histo: L. lung collapsed Smoking Status: Current Every Day Smoker Alcohol Use: None Drug Use: None Adult General Chief Complaint Chief Complaint: LOWER EXTREMITY SWELLING HPI HPI Patient is a 49 year old female presenting to the due to chief complaint of weight gain in the last 6 months. She is well-known to the ER with multiple visits for similar complaints. Patient however does say that she is short of breath when she walks Review of Systems Review of Systems Patient denies fever, chills, nausea, vomiting, diarrhea, dysuria, chest pain, abdominal pain. Patient is complaining of weight gain and shortness of breath All other systems were reviewed and found to be within normal limits, except as documented in this note. Allergies Allergies Allergies Coded Allergies Type Severity Reaction Last Updated Verified carbamazepine Allergy Intermediate MUSCLE PAIN 08/08/14 Yes codeine Allergy Intermediate rash 08/08/14 Yes Physical Exam Physical Exam Constitutional: Well developed, well nourished, no acute distress, non-toxic appearance. [] HENT: Normocephalic, atraumatic Eyes: PERRLA, EOMI, conjunctiva normal, no discharge. [] Neck: Normal range of motion Cardiovascular:Heart rate regular rhythm, no murmur [] Lungs & Thorax: Bilateral breath sounds clear to auscultation [] Abdomen: Bowel sounds normal, soft, no tenderness, no masses, no pulsatile masses. [] Extremities: No tenderness, no cyanosis, no clubbing, ROM intact, no edema. [] Neurologic: Alert and oriented X 3, normal motor function, normal sensory function, no focal deficits noted. [] Current Patient Data Vital Signs Vital Signs Date Time Temp Pulse Resp B/P (MAP) Pulse Ox O2 Delivery O2 Flow Rate FiO2 11/27/19 18:33 92 16 122/56 (78) 99 Room Air 11/27/19 17:27 98.0 98.0 Lab Values Laboratory Tests Test 11/27/19 17:44 11/27/19 18:10 11/27/19 18:35 White Blood Count 10.0 x10^3/uL (4.0-11.0) Red Blood Count 4.58 x10^6/uL (3.50-5.40) Hemoglobin 14.9 g/dL (12.0-15.5) Hematocrit 43.4 % (36.0-47.0) Mean Corpuscular Volume 95 fL (79-100) Mean Corpuscular Hemoglobin 32 pg (25-35) Mean Corpuscular Hemoglobin Concent 34 g/dL (31-37) Red Cell Distribution Width 14.4 % (11.5-14.5) Platelet Count 236 x10^3/uL (140-400) Neutrophils (%) (Auto) 71 % (31-73) Lymphocytes (%) (Auto) 22 % (24-48) L Monocytes (%) (Auto) 5 % (0-9) Eosinophils (%) (Auto) 1 % (0-3) Basophils (%) (Auto) 1 % (0-3) Neutrophils # (Auto) 7.2 x10^3/uL (1.8-7.7) Lymphocytes # (Auto) 2.2 x10^3/uL (1.0-4.8) Monocytes # (Auto) 0.5 x10^3/uL (0.0-1.1) Eosinophils # (Auto) 0.1 x10^3/uL (0.0-0.7) Basophils # (Auto) 0.1 x10^3/uL (0.0-0.2) Sodium Level 137 mmol/L (136-145) Potassium Level 3.9 mmol/L (3.5-5.1) Chloride Level 102 mmol/L (98-107) Carbon Dioxide Level 24 mmol/L (21-32) Anion Gap 11 (6-14) Blood Urea Nitrogen 11 mg/dL (7-20) Creatinine 0.8 mg/dL (0.6-1.0) Estimated GFR (Cockcroft-Gault) 75.9 BUN/Creatinine Ratio 14 (6-20) Glucose Level 106 mg/dL (70-99) H Calcium Level 9.7 mg/dL (8.5-10.1) Total Bilirubin 0.3 mg/dL (0.2-1.0) Aspartate Amino Transferase (AST) 18 U/L (15-37) Alanine Aminotransferase (ALT) 38 U/L (14-59) Alkaline Phosphatase 90 U/L (46-116) KG-Rua-U-Type Natriuretic Peptide 22 pg/mL (0-124) Total Protein 7.2 g/dL (6.4-8.2) Albumin 4.1 g/dL (3.4-5.0) Albumin/Globulin Ratio 1.3 (1.0-1.7) Urine Collection Type Unknown Urine Color Yellow Urine Clarity Cloudy Urine pH 6.0 (<5.0-8.0) Urine Specific [place] 1.020 (1.000-1.030) Urine Protein Negative mg/dL (NEG-TRACE) Urine Glucose (UA) Negative mg/dL (NEG) Urine Ketones (Stick) Negative mg/dL (NEG) Urine Blood Negative (NEG) Urine Nitrite Negative (NEG) Urine Bilirubin Negative (NEG) Urine Urobilinogen Dipstick 0.2 mg/dL (0.2 mg/dL) Urine Leukocyte Esterase Negative (NEG) Urine RBC Occ /HPF (0-2) Urine WBC 1-4 /HPF (0-4) Urine Squamous Epithelial Cells Many /LPF Urine Bacteria Few /HPF (0-FEW) Urine Mucus Mod /LPF Laboratory Tests 11/27/19 17:44 Laboratory Tests 11/27/19 18:10 EKG EKG [] Radiology/Procedures Radiology/Procedures [] Impressions: Chest x-ray shows no acute disease Course & Med Decision Making Course & Med Decision Making Pertinent Labs and Imaging studies reviewed. (See chart for details) Labs are within normal limits. Chest x-ray does not show any acute disease. Patient will be discharged for outpatient follow-up with PCP. Discussed results and plan of care with patient. Patient is instructed to follow up with PCP in one to 2 days. Appropriate discharge instructions given to patient to return to the ED or to seek immediate medical evaluation. Patient is instructed to return to the ED if symptoms worsen or if any concerns. Dragon Disclaimer Dragon Disclaimer This electronic medical record was generated, in whole or in part, using a voice recognition dictation system. Attending Signature I have participated in the care of this patient and I have reviewed and agree with all pertinent clinical information above including history, exam, and recommendations. Departure Departure Impression: Primary Impression: Edema Disposition: HOME, SELF-CARE Condition: STABLE Referrals: ROSS RABAGO APRN (PCP) OWEN MELO DO Nov 27, 2019 18:57
[2019-11-27 19:02] LABS: SQUAMOUS EPITHELIAL CELL,UR MANY /LPF
[2019-11-27 19:03] LABS: BACTERIA,URINE FEW /HPF (0-FEW); RBC,URINE OCC /HPF (0-2)
[2019-11-27 19:17] LABS: CALCIUM 9.7 mg/dL (8.5-10.1); CREATININE 0.8 mg/dL (0.6-1.0); GFR 75.9; POTASSIUM 3.9 mmol/L (3.5-5.1)
[2019-11-27 19:22] LABS: ALBUMIN 4.1 g/dL (3.4-5.0); ALBUMIN/GLOBULIN RATIO 1.3 (1.0-1.7); TOTAL BILIRUBIN 0.3 mg/dL (0.2-1.0); TOTAL PROTEIN 7.2 g/dL (6.4-8.2)
== END 2019-11-27 19:35 | disposition home or self-care (01) ==
LOC: ER 15:53
DX: R60.9 Edema, unspecified (principal); F17.200 Nicotine dependence, unspecified, uncomplicated; G40.909 Epilepsy, unspecified, not intractable, without status epilepticus; Z88.5 Allergy status to narcotic agent; Z88.8 Allergy status to other drugs, medicaments and biological substances
CPT/HCPCS: 36415; 71045; 80053; 81001; 83880; 85025; 99284

== ENCOUNTER 2020-01-18 18:01 | Emergency (ER) | payer OTHER ==
[~2020-01-18] VITALS: Ht 162.6 cm; Wt 73.0 kg
[2020-01-18 18:34] LABS: BILIRUBIN,URINE NEGATIVE (NEG); CLARITY,URINE CLEAR; COLOR,URINE YELLOW; NITRITE,URINE NEGATIVE (NEG); PROTEIN,URINE NEGATIVE (NEG-TRACE); UROBILINOGEN,URINE 0.2 mg/dL (0.2 mg/dL)
[2020-01-18 18:38] LABS: BACTERIA,URINE FEW /HPF (0-FEW); RBC,URINE 0 /HPF (0-2); SQUAMOUS EPITHELIAL CELL,UR FEW /LPF
[2020-01-18 18:39] LABS: WBC,URINE OCC /HPF (0-4)
[2020-01-18] MEDS ORDERED: ONDANSETRON PF 4 MG/2 ML VIAL. IVP ONE (19:00)
[2020-01-18 19:01] LABS: BARBITURATES POS (NEG); BENZODIAZEPINES NEG (NEG); CANNABINOIDS NEG (NEG); COCAINE NEG (NEG); METHADONE NEG (NEG); OPIATES NEG (NEG); PHENCYCLIDINE NEG (NEG)
[2020-01-18 19:04] LABS: AMPHETAMINE/METHAMPHETAMINE NEG (NEG)
--- NOTE | 2020-01-18 19:24 | RAD ---
CT ABDOMEN PELVIS WO CONTRAST History: Abdominal pain. Technique: Noncontrast examination of the abdomen and pelvis. Coronal and sagittal reconstructions were performed. Exposure: One or more of the following individualized dose reduction techniques were utilized for this examination: 1. Automated exposure control 2. Adjustment of the mA and/or kV according to patient size 3. Use of iterative reconstruction technique. Comparison: November 27, 2018 Findings: Lower chest: No consolidation or pleural effusion. Abdomen and pelvis: The liver, spleen, adrenal glands, pancreas and gallbladder are unremarkable. No biliary ductal dilatation.. Lobulated appearance of the kidneys, right greater than left, unchanged. No hydronephrosis. No renal, ureteral or urinary bladder stone. Appendix not well seen. No evidence of bowel obstruction. No pathologic lymphadenopathy. No ascites. Pelvic contents are unremarkable. Mild atheromatous plaque within the nonaneurysmal abdominal aorta and branch vessels. Bones: No pathologic osseous lesions. Impression: 1. No acute abdominal or pelvic pathology. Electronically signed by: Armando Lazar DO (01/18/2020 7:21 PM) [facility]
[2020-01-18 19:35] LABS: BASO # 0.1 x10^3/uL (0.0-0.2); BASO % 1 % (0-3); EOS % 1 % (0-3); HEMATOCRIT 41.9 % (36.0-47.0); HEMOGLOBIN 14.3 g/dL (12.0-15.5); LYMPH # 1.7 x10^3/uL (1.0-4.8); LYMPH % 20 % (24-48); MEAN CORPUSCULAR HEMOGLOBIN 32 pg (25-35); MEAN CORPUSCULAR HGB CONC 34 g/dL (31-37); MEAN CORPUSCULAR VOLUME 95 fL (79-100); MONO # 0.5 x10^3/uL (0.0-1.1); MONO % 6 % (0-9); NEUT # 6.6 x10^3/uL (1.8-7.7); NEUT % 73 % (31-73); PLATELET COUNT 207 x10^3/uL (140-400); RED CELL DISTRIBUTION WIDTH 13.6 % (11.5-14.5)
[2020-01-18 19:49] LABS: CALCIUM 9.2 mg/dL (8.5-10.1); CREATININE 0.7 mg/dL (0.6-1.0); GFR 88.6; POTASSIUM 3.7 mmol/L (3.5-5.1)
[2020-01-18 19:55] LABS: ALBUMIN 3.9 g/dL (3.4-5.0); ALBUMIN/GLOBULIN RATIO 1.3 (1.0-1.7); TOTAL BILIRUBIN 0.2 mg/dL (0.2-1.0); TOTAL PROTEIN 6.8 g/dL (6.4-8.2)
--- NOTE | 2020-01-18 20:02 | PHYS DOC ---
Past Medical History Past Medical History: Seizure Additional Past Medical Histor: epilepsy, kidney infections, shingles, pinched nerve in neck, FATTY LIVER Past Surgical History: Appendectomy, Additional Past Surgical Histo: L. lung collapsed Smoking Status: Current Every Day Smoker Alcohol Use: None Drug Use: None General Adult EDM: Chief Complaint: FLANK PAIN HPI: HPI: Patient is a 49 year old female with history of seizures who presents to the ED today with multiple complaints. Patient is complaining of generalized intermittent mild to moderate abdominal pain, pelvic pressure, urgency, frequency, dysuria, symptoms since yesterday. She is well-known to this ED for multiple visits. Reports nausea, and vomiting, and states she was seen by their own PCP and was given Zofran for this. Review of Systems: Review of Systems: Constitutional: Denies fever or chills. [] Eyes: Denies change in visual acuity. [] HENT: Denies nasal congestion or sore throat. [] Respiratory: Denies cough or shortness of breath. [] Cardiovascular: Denies chest pain or edema. [] GI: Reports abdominal pain, nausea and vomiting, denies bloody stools or diarrhea. [] : Denies dysuria. [] Musculoskeletal: Denies back pain or joint pain. [] Integument: Denies rash. [] Neurologic: Denies headache, focal weakness or sensory changes. [] Psychiatric: Denies depression or anxiety. [] Heart Score: Risk Factors: Risk Factors: DM, Current or recent (<one month) smoker, HTN, HLP, family history of CAD, obesity. Risk Scores: Score 0 - 3: 2.5% MACE over next 6 weeks - Discharge Home Score 4 - 6: 20.3% MACE over next 6 weeks - Admit for Clinical Observation Score 7 - 10: 72.7% MACE over next 6 weeks - Early Invasive Strategies Current Medications: Current Medications Medications (Trade) Dose Ordered Sig/Ifrah Start Time Stop Time Status Last Admin Dose Admin Ondansetron HCl (Zofran) 4 mg 1X ONCE 01/18/20 19:00 01/18/20 19:01 DC Allergies: Allergies: Allergies Coded Allergies Type Severity Reaction Last Updated Verified carbamazepine Allergy Intermediate MUSCLE PAIN 08/08/14 Yes codeine Allergy Intermediate rash 08/08/14 Yes Physical Exam: PE: Constitutional: Well developed, well nourished, no acute distress, non-toxic appearance. [] HENT: Normocephalic, atraumatic, bilateral external ears normal, oropharynx moist, no oral exudates, nose normal. [] Eyes: PERRLA, EOMI, conjunctiva normal, no discharge. [] Neck: Normal range of motion, no tenderness, supple, no stridor. [] Cardiovascular:Heart rate regular rhythm, no murmur [] Lungs & Thorax: Bilateral breath sounds clear to auscultation [] Abdomen: Bowel sounds normal, soft, no tenderness, no masses, no pulsatile masses. [] Skin: Warm, dry, no erythema, no rash. [] Back: No tenderness, no CVA tenderness. [] Extremities: No tenderness, no cyanosis, no clubbing, ROM intact, no edema. [] Neurologic: Alert and oriented X 3, normal motor function, normal sensory function, no focal deficits noted. [] Psychologic: Affect normal, judgement normal, mood normal. [] Current Patient Data: Labs: Laboratory Tests Test 01/18/20 18:25 01/18/20 18:28 01/18/20 19:25 Urine Collection Type Unknown Urine Color Yellow Urine Clarity Clear Urine pH 7.0 (<5.0-8.0) Urine Specific [place] <=1.005 (1.000-1.030) Urine Protein Negative mg/dL (NEG-TRACE) Urine Glucose (UA) Negative mg/dL (NEG) Urine Ketones (Stick) 15 mg/dL (NEG) Urine Blood Trace (NEG) Urine Nitrite Negative (NEG) Urine Bilirubin Negative (NEG) Urine Urobilinogen Dipstick 0.2 mg/dL (0.2 mg/dL) Urine Leukocyte Esterase Negative (NEG) Urine RBC 0 /HPF (0-2) Urine WBC Occ /HPF (0-4) Urine Squamous Epithelial Cells Few /LPF Urine Bacteria Few /HPF (0-FEW) Urine Opiates Screen Neg (NEG) Urine Methadone Screen Neg (NEG) Urine Barbiturates Pos (NEG) Urine Phencyclidine Screen Neg (NEG) Urine Amphetamine/Methamphetamine Neg (NEG) Urine Benzodiazepines Screen Neg (NEG) Urine Cocaine Screen Neg (NEG) Urine Cannabinoids Screen Neg (NEG) Urine Ethyl Alcohol Neg (NEG) POC Urine HCG, Qualitative Hcg negative (Negative) White Blood Count 9.0 x10^3/uL (4.0-11.0) Red Blood Count 4.40 x10^6/uL (3.50-5.40) Hemoglobin 14.3 g/dL (12.0-15.5) Hematocrit 41.9 % (36.0-47.0) Mean Corpuscular Volume 95 fL (79-100) Mean Corpuscular Hemoglobin 32 pg (25-35) Mean Corpuscular Hemoglobin Concent 34 g/dL (31-37) Red Cell Distribution Width 13.6 % (11.5-14.5) Platelet Count 207 x10^3/uL (140-400) Neutrophils (%) (Auto) 73 % (31-73) Lymphocytes (%) (Auto) 20 % (24-48) L Monocytes (%) (Auto) 6 % (0-9) Eosinophils (%) (Auto) 1 % (0-3) Basophils (%) (Auto) 1 % (0-3) Neutrophils # (Auto) 6.6 x10^3/uL (1.8-7.7) Lymphocytes # (Auto) 1.7 x10^3/uL (1.0-4.8) Monocytes # (Auto) 0.5 x10^3/uL (0.0-1.1) Eosinophils # (Auto) 0.0 x10^3/uL (0.0-0.7) Basophils # (Auto) 0.1 x10^3/uL (0.0-0.2) Sodium Level 141 mmol/L (136-145) Potassium Level 3.7 mmol/L (3.5-5.1) Chloride Level 106 mmol/L (98-107) Carbon Dioxide Level 23 mmol/L (21-32) Anion Gap 12 (6-14) Blood Urea Nitrogen 8 mg/dL (7-20) Creatinine 0.7 mg/dL (0.6-1.0) Estimated GFR (Cockcroft-Gault) 88.6 BUN/Creatinine Ratio 11 (6-20) Glucose Level 110 mg/dL (70-99) H Calcium Level 9.2 mg/dL (8.5-10.1) Total Bilirubin 0.2 mg/dL (0.2-1.0) Aspartate Amino Transferase (AST) 18 U/L (15-37) Alanine Aminotransferase (ALT) 42 U/L (14-59) Alkaline Phosphatase 78 U/L (46-116) Total Protein 6.8 g/dL (6.4-8.2) Albumin 3.9 g/dL (3.4-5.0) Albumin/Globulin Ratio 1.3 (1.0-1.7) Lipase 125 U/L (73-393) Ethyl Alcohol Level < 10 mg/dL (0-10) Laboratory Tests 01/18/20 19:25 Laboratory Tests 01/18/20 19:25 Vital Signs: Vital Signs Date Time Temp Pulse Resp B/P (MAP) Pulse Ox O2 Delivery O2 Flow Rate FiO2 01/18/20 18:50 98.3 125 21 180/79 (112) 96 Room Air 98.3 EKG: EKG: [] Radiology/Procedures: Radiology/Procedures: []PROCEDURE: CT ABDOMEN PELVIS WO CONTRAST CT ABDOMEN PELVIS WO CONTRAST History: Abdominal pain. Technique: Noncontrast examination of the abdomen and pelvis. Coronal and sagittal reconstructions were performed. Exposure: One or more of the following individualized dose reduction techniques were utilized for this examination: 1. Automated exposure control 2. Adjustment of the mA and/or kV according to patient size 3. Use of iterative reconstruction technique. Comparison: November 27, 2018 Findings: Lower chest: No consolidation or pleural effusion. Abdomen and pelvis: The liver, spleen, adrenal glands, pancreas and gallbladder are unremarkable. No biliary ductal dilatation.. Lobulated appearance of the kidneys, right greater than left, unchanged. No hydronephrosis. No renal, ureteral or urinary bladder stone. Appendix not well seen. No evidence of bowel obstruction. No pathologic lymphadenopathy. No ascites. Pelvic contents are unremarkable. Mild atheromatous plaque within the nonaneurysmal abdominal aorta and branch vessels. Bones: No pathologic osseous lesions. Impression: 1. No acute abdominal or pelvic pathology. Electronically signed by: Armando Muniz DO (01/18/2020 7:21 PM) [facility] DICTATED and SIGNED BY: ARMANDO MUNIZ DO DATE: 01/18/201920 Course & Med Decision Making: Course & Med Decision Making Pertinent Labs and Imaging studies reviewed. (See chart for details) This is a 49-year-old female patient who presents to the ED today with multiple complaints including abdominal pain, pelvic pressure, urgency, frequency, dysuria, nausea, vomiting. Patient is well-known to this ED for multiple visits that have been worked up with no acute findings. Urine analysis negative for infection, CBC, CMP-no acute findings. CT of the abdomen and pelvic is negative. Discharge to home. Pro Disclaimer: Pro Disclaimer: This electronic medical record was generated, in whole or in part, using a voice recognition dictation system. Departure Departure Impression: Primary Impression: Abdominal pain Qualified Codes: R10.84 - Generalized abdominal pain Additional Impression: Dysuria Disposition: HOME, SELF-CARE Condition: STABLE Referrals: ROSS RABAGO APRN (PCP) follow up next week Patient Instructions: Abdominal Pain (Nonspecific) Additional Instructions: You were evaluated in the emergency room, your CAT scan of the abdomen and pelvis, urine analysis, as well as CBC and CMP were negative for any acute findings. Please follow-up with your doctor next week. You can take [id number] remedies as needed. Scripts Prochlorperazine Maleate (Compazine) 10 Mg Tablet 1 TAB PO Q6HRS, #20 TAB 0 Refills Prov: PRIMO MACHUCA APRN 01/18/20 PRIMO MACHUCA APRN January 18, 2020 20:02
[2020-01-18] MEDS ORDERED: PROC10TA57 PO (20:06)
[2020-01-18 20:20] VITALS: BP 141/82
== END 2020-01-18 20:25 | disposition home or self-care (01) ==
LOC: ER 18:01
DX: R10.84 Generalized abdominal pain (principal); R30.0 Dysuria; R35.0 Frequency of micturition; R39.15 Urgency of urination; R11.2 Nausea with vomiting, unspecified; N94.89 Other specified conditions associated with female genital organs and menstrual cycle; G40.909 Epilepsy, unspecified, not intractable, without status epilepticus; F17.200 Nicotine dependence, unspecified, uncomplicated; Z90.89 Acquired absence of other organs; Z88.5 Allergy status to narcotic agent; Z88.8 Allergy status to other drugs, medicaments and biological substances
CPT/HCPCS: 36415; 74176; 80053; 80307; 81001; 81025; 83690; 85025; 99284; G0480; 29515

== ENCOUNTER 2020-02-19 18:15 | Emergency (ER) | payer OTHER ==
[~2020-02-19] VITALS: Ht 160 cm; Wt 67.0 kg
[~2020-02-19 18:15] MED LIST changes: +PROC10TA57 PO
[2020-02-19] MEDS ORDERED: IV NORMAL SALINE 1000ML BAG 1,000 ML IV SCH (18:40)
[2020-02-19] MEDS ORDERED: MORPHINE SULFATE 4 MG/ML VIAL. IV/SQ PRN (18:45)
[2020-02-19] MEDS ORDERED: ASPIRIN CHEWABLE 81 MG TABLET. PO ONE (18:45)
[2020-02-19 19:22] LABS: BASO # 0.1 x10^3/uL (0.0-0.2); BASO % 1 % (0-3); EOS # 0.1 x10^3/uL (0.0-0.7); EOS % 1 % (0-3); HEMATOCRIT 39.5 % (36.0-47.0); LYMPH # 2.3 x10^3/uL (1.0-4.8); LYMPH % 24 % (24-48); MEAN CORPUSCULAR HEMOGLOBIN 34 pg (25-35); MEAN CORPUSCULAR HGB CONC 35 g/dL (31-37); MEAN CORPUSCULAR VOLUME 95 fL (79-100); MONO # 0.5 x10^3/uL (0.0-1.1); MONO % 6 % (0-9); NEUT # 6.6 x10^3/uL (1.8-7.7); NEUT % 69 % (31-73); PLATELET COUNT 206 x10^3/uL (140-400); RED BLOOD COUNT 4.17 x10^6/uL (3.50-5.40); RED CELL DISTRIBUTION WIDTH 13.8 % (11.5-14.5); WHITE BLOOD COUNT 9.6 x10^3/uL (4.0-11.0)
--- NOTE | 2020-02-19 19:26 | RAD ---
Exam: Chest one view INDICATION: Nausea, chest and jaw pain TECHNIQUE: Frontal view of the chest Comparisons: 11/27/2019 FINDINGS: The cardiomediastinal silhouette and pulmonary vessels are within normal limits. The lung and pleural spaces are clear. IMPRESSION: No acute cardiopulmonary process. Electronically signed by: Elan Horvath MD (02/19/2020 7:23 PM) [id number]
[2020-02-19 19:32] LABS: CALCIUM 9.4 mg/dL (8.5-10.1); CREATININE 0.7 mg/dL (0.6-1.0); GFR 88.6; POTASSIUM 3.8 mmol/L (3.5-5.1)
[2020-02-19 19:37] LABS: ALBUMIN 3.8 g/dL (3.4-5.0); ALBUMIN/GLOBULIN RATIO 1.6 (1.0-1.7); MAGNESIUM 2.1 mg/dL (1.8-2.4); TOTAL BILIRUBIN 0.2 mg/dL (0.2-1.0); TOTAL PROTEIN 6.2 g/dL (6.4-8.2)
[2020-02-19 21:03] VITALS: BP 134/66
[2020-02-19] MEDS ORDERED: DICL50TA4 PO (21:30)
[2020-02-19] MEDS ORDERED: ORPH100T PO (21:30)
[2020-02-19] MEDS ORDERED: METH4TAB2 PO (21:30)
--- NOTE | 2020-02-19 21:30 | PHYS DOC ---
Past Medical History Past Medical History: Seizure Additional Past Medical Histor: epilepsy, kidney infections, shingles, pinched nerve in neck, FATTY LIVER Past Surgical History: Appendectomy, Additional Past Surgical Histo: L. lung collapsed Smoking Status: Current Every Day Smoker Alcohol Use: None Drug Use: None General Adult EDM: Chief Complaint: NAUSEA/VOMITING/DIARRHA HPI: HPI: Patient is a 49 year old female who arrives with complaint of left-sided scapular pain that started a few days ago and is radiating up to the back of her neck as well as the side of her neck and jaw and down the left arm. She states that she has had some nausea and admits to being very anxious, stating that she is worried that it could be her heart. She denies any actual chest pain. Patient denies any cough or fever. Patient rates pain as severe. Patient was seen at [facility] for very similar symptoms a couple of weeks ago. [] Review of Systems: Review of Systems: Constitutional: Denies fever or chills. [] Respiratory: Denies cough or shortness of breath. [] Cardiovascular: Denies chest pain or edema. [] Musculoskeletal: Complains of left scapular/back pain. [] Neurologic: Denies headache, focal weakness or sensory changes. [] A full 10 point review of systems has been reviewed and is otherwise negative. Heart Score: HEART Score for Chest Pain: HEART Score for Chest Pain Response (Comments) Value History Slighlty/Non-Suspicious 0 ECG Normal 0 Age >45 - < 65 1 Risk Factors 1 or 2 Risk Factors 1 Troponin < Normal Limit 0 Total 2 Risk Factors: Risk Factors: DM, Current or recent (<one month) smoker, HTN, HLP, family history of CAD, obesity. Risk Scores: Score 0 - 3: 2.5% MACE over next 6 weeks - Discharge Home Score 4 - 6: 20.3% MACE over next 6 weeks - Admit for Clinical Observation Score 7 - 10: 72.7% MACE over next 6 weeks - Early Invasive Strategies Current Medications: Current Medications Medications (Trade) Dose Ordered Sig/Ifrah Start Time Stop Time Status Last Admin Dose Admin Aspirin (Aspirin Chewable) 324 mg 1X ONCE 02/19/20 18:45 02/19/20 18:46 DC 02/19/20 19:23 324 MG Morphine Sulfate (Morphine Sulfate) 4 mg PRN Q15MIN PRN 02/19/20 18:45 02/20/20 18:44 02/19/20 19:22 4 MG Sodium Chloride 1,000 ml @ 1,000 mls/hr Q1H 02/19/20 18:40 02/19/20 19:39 DC 02/19/20 19:23 1,000 MLS/HR Allergies: Allergies: Allergies Coded Allergies Type Severity Reaction Last Updated Verified carbamazepine Allergy Intermediate MUSCLE PAIN 08/08/14 Yes codeine Allergy Intermediate rash 08/08/14 Yes Physical Exam: PE: Constitutional: Well developed, well nourished, no acute distress, non-toxic appearance. [] HENT: Normocephalic, atraumatic, bilateral external ears normal, oropharynx moist, no oral exudates, nose normal. [] Eyes: PERRLA, EOMI, conjunctiva normal, no discharge. [] Neck: Normal range of motion, no tenderness, supple, no stridor. [] Cardiovascular: Regular rate and rhythm [] Lungs & Thorax: Bilateral breath sounds clear to auscultation [] Abdomen: Bowel sounds normal, soft, no tenderness. [] Skin: Warm, dry, no erythema, no rash. [] Extremities: No tenderness, no cyanosis, no clubbing, ROM intact, no edema. [] Neurologic: Alert and oriented X 3, no focal deficits noted. [] Current Patient Data: Labs: Laboratory Tests Test 02/19/20 19:14 White Blood Count 9.6 x10^3/uL (4.0-11.0) Red Blood Count 4.17 x10^6/uL (3.50-5.40) Hemoglobin 14.0 g/dL (12.0-15.5) Hematocrit 39.5 % (36.0-47.0) Mean Corpuscular Volume 95 fL (79-100) Mean Corpuscular Hemoglobin 34 pg (25-35) Mean Corpuscular Hemoglobin Concent 35 g/dL (31-37) Red Cell Distribution Width 13.8 % (11.5-14.5) Platelet Count 206 x10^3/uL (140-400) Neutrophils (%) (Auto) 69 % (31-73) Lymphocytes (%) (Auto) 24 % (24-48) Monocytes (%) (Auto) 6 % (0-9) Eosinophils (%) (Auto) 1 % (0-3) Basophils (%) (Auto) 1 % (0-3) Neutrophils # (Auto) 6.6 x10^3/uL (1.8-7.7) Lymphocytes # (Auto) 2.3 x10^3/uL (1.0-4.8) Monocytes # (Auto) 0.5 x10^3/uL (0.0-1.1) Eosinophils # (Auto) 0.1 x10^3/uL (0.0-0.7) Basophils # (Auto) 0.1 x10^3/uL (0.0-0.2) D-Dimer (Mamie) < 0.27 ug/mlFEU Sodium Level 139 mmol/L (136-145) Potassium Level 3.8 mmol/L (3.5-5.1) Chloride Level 104 mmol/L (98-107) Carbon Dioxide Level 25 mmol/L (21-32) Anion Gap 10 (6-14) Blood Urea Nitrogen 8 mg/dL (7-20) Creatinine 0.7 mg/dL (0.6-1.0) Estimated GFR (Cockcroft-Gault) 88.6 BUN/Creatinine Ratio 11 (6-20) Glucose Level 108 mg/dL (70-99) H Calcium Level 9.4 mg/dL (8.5-10.1) Magnesium Level 2.1 mg/dL (1.8-2.4) Total Bilirubin 0.2 mg/dL (0.2-1.0) Aspartate Amino Transferase (AST) 18 U/L (15-37) Alanine Aminotransferase (ALT) 28 U/L (14-59) Alkaline Phosphatase 71 U/L (46-116) Troponin I Quantitative < 0.017 ng/mL (0.000-0.055) Total Protein 6.2 g/dL (6.4-8.2) L Albumin 3.8 g/dL (3.4-5.0) Albumin/Globulin Ratio 1.6 (1.0-1.7) Laboratory Tests 02/19/20 19:14 Laboratory Tests 02/19/20 19:14 Vital Signs: Vital Signs Date Time Temp Pulse Resp B/P (MAP) Pulse Ox O2 Delivery O2 Flow Rate FiO2 02/19/20 21:03 102 134/66 (88) 97 Room Air 02/19/20 19:36 18 02/19/20 18:30 98.6 98.6 EKG: EKG: EKG demonstrates normal sinus rhythm with no significant ST segment abnormalities. [] Radiology/Procedures: Radiology/Procedures: [] Course & Med Decision Making: Course & Med Decision Making Pertinent Labs and Imaging studies reviewed. (See chart for details) [] Dragon Disclaimer: Dragon Disclaimer: This electronic medical record was generated, in whole or in part, using a voice recognition dictation system. Departure Departure Impression: Primary Impression: Musculoskeletal pain Disposition: HOME, SELF-CARE Condition: STABLE Referrals: ROSS RABAGO APRN (PCP) Patient Instructions: Musculoskeletal Pain Scripts Orphenadrine Citrate (ORPHENADRINE CITRATE) 100 Mg Tablet.er 1 TAB PO BID PRN for MUSCLE SPASMS, #14 TAB Prov: JAIME FARMER Jr. DO 02/19/20 Methylprednisolone (MEDROL) 4 Mg Tab.ds.pk 1 PKG PO UD, #1 PKG Prov: JAIME FARMER Jr. DO 02/19/20 Diclofenac Sodium (DICLOFENAC SODIUM) 50 Mg Tablet.dr 1 TAB PO BID PRN for PAIN, #20 TAB Prov: JAIME FARMER Jr. DO 02/19/20 Justicifation of Admission Dx: Justifications for Admission: Justification of Admission Dx: Comment: (Not applicable) JAIME FARMER Jr. DO Feb 19, 2020 21:30
--- NOTE | 2020-02-20 06:17 | EKG ---
[address] [place] [address] Test Date: 2020-02-19 Test Time: 18:43:59 Pat Name: JEFRY RASHID Department: Room: Gender: F [employer]: : 1970 Requested By: JAIME FARMER Order Number: [id number] Reading MD: Measurements Intervals [place] Rate: 103 P: 42 [place]: 132 QRS: 86 QRSD: 86 T: 7 QT: 318 QTc: 418 Interpretive Statements SINUS TACHYCARDIA OTHERWISE NORMAL ECG RI6.02 No previous ECG available for comparison
== END 2020-02-19 21:45 | disposition home or self-care (01) ==
LOC: ER 18:15
DX: M25.512 Pain in left shoulder (principal); M54.2 Cervicalgia; R68.84 Jaw pain; R30.0 Dysuria; G40.909 Epilepsy, unspecified, not intractable, without status epilepticus; F17.200 Nicotine dependence, unspecified, uncomplicated; Z88.5 Allergy status to narcotic agent; Z88.8 Allergy status to other drugs, medicaments and biological substances
CPT/HCPCS: 36415; 71045; 80053; 83735; 84484; 85025; 85379; 93005; 96374; 99285; J2270; J7030; 96361

== ENCOUNTER 2020-02-22 18:11 | Emergency (ER) | payer OTHER ==
[~2020-02-22] VITALS: Ht 160 cm; Wt 66.0 kg
[~2020-02-22 18:11] MED LIST changes: +DICL50TA4 PO; +METH4TAB2 PO; +ORPH100T PO
[2020-02-22 19:20] VITALS: BP 123/62
--- NOTE | 2020-02-22 20:49 | PHYS DOC ---
Past Medical History Past Medical History: Seizure Additional Past Medical Histor: epilepsy, kidney infections, shingles, pinched nerve in neck, FATTY LIVER Past Surgical History: Appendectomy, Additional Past Surgical Histo: L. lung collapsed Smoking Status: Current Every Day Smoker Alcohol Use: None Drug Use: None General Adult EDM: Chief Complaint: OTHER COMPLAINTS HPI: HPI: Patient is a 49 year old female who presents to the emergency department with complaints of feeling jittery and shaky after taking her medication today. Patient states she has been taking steroids that were prescribed for a previous ER visit 3 days ago. She denies any fever, shortness of breath, wheezing, chest pain, abdominal pain, nausea, vomiting, diarrhea, rash, or difficulty s wallowing. Patient states that she noticed her throat feels sore. She denies any dysphonia. She currently rates the pain in her throat a 4 out of 10 on the pain scale, she denies any alleviating or exacerbating factors, the pain does not radiate anywhere. The patient reports that she has a follow-up appointment scheduled with her primary care provider for next Wednesday. Review of Systems: Review of Systems: Constitutional: Denies fever or chills. [] Eyes: Denies change in visual acuity. [] HENT: Denies nasal congestion; see HPI Respiratory: Denies cough or shortness of breath. [] Cardiovascular: Denies chest pain or edema. [] GI: Denies abdominal pain, nausea, vomiting, or diarrhea. [] Musculoskeletal: Denies back pain or joint pain. [] Integument: Denies rash. [] Neurologic: Denies headache; see HPI Lymphatic: Reports bilateral anterior cervical and submental enlarged lymph nodes Psychiatric: Denies depression or anxiety. [] Heart Score: Risk Factors: Risk Factors: DM, Current or recent (<one month) smoker, HTN, HLP, family history of CAD, obesity. Risk Scores: Score 0 - 3: 2.5% MACE over next 6 weeks - Discharge Home Score 4 - 6: 20.3% MACE over next 6 weeks - Admit for Clinical Observation Score 7 - 10: 72.7% MACE over next 6 weeks - Early Invasive Strategies Allergies: Allergies: Allergies Coded Allergies Type Severity Reaction Last Updated Verified carbamazepine Allergy Intermediate MUSCLE PAIN 08/08/14 Yes codeine Allergy Intermediate rash 08/08/14 Yes Physical Exam: PE: Constitutional: Well developed, well nourished, no acute distress, non-toxic ace earance, anxious. [] HENT: Normocephalic, atraumatic, bilateral external ears normal, oropharynx moist, posterior pharynx normal, no oral exudates, nasal turbinates edematous and erythematous bilateral, scant amount of postnasal drainage. Eyes: PERRLA, EOMI, conjunctiva normal, no discharge. [] Neck: Normal range of motion, supple, no stridor. [] Cardiovascular:Heart rate regular rhythm Lungs & Thorax: Bilateral breath sounds clear to auscultation, Respirations even and unlabored, no retractions, no respiratory distress [] Skin: Warm, dry, no erythema, no rash. [] Extremities: No cyanosis, ROM intact, no edema. [] Neurologic: Alert and oriented X 3, no focal deficits noted. [] Psychologic: Affect normal, judgement normal, mood normal. [] Current Patient Data: Vital Signs: Vital Signs Date Time Temp Pulse Resp B/P (MAP) Pulse Ox O2 Delivery O2 Flow Rate FiO2 20 19:20 97.8 105 18 123/62 (82) 96 Room Air 97.8 EKG: EKG: [] Radiology/Procedures: Radiology/Procedures: [] Course & Med Decision Making: Course & Med Decision Making Pertinent Labs and Imaging studies reviewed. (See chart for details) 49-year-old female who presented to the emergency room for complaints of not feeling right after taking the Medrol Dosepak this morning. Patient's vital signs are stable throughout the emergency department. Her physical exam was unremarkable. Advised the patient that these are common side effects of the Medrol Dosepak. Encouraged the patient to stop taking the medication. Also avoid other stimulants such as caffeine and nicotine. I encouraged patient to follow-up with her primary care doctor next week as scheduled. And instructed her to return to the ER if her symptoms worsened or she developed fever. Patient verbalized an understanding of home care, medications, follow-up, and return to ED instructions and was in agreement with the plan of care. [] Dragon Disclaimer: Dragon Disclaimer: This electronic medical record was generated, in whole or in part, using a voice recognition dictation system. Departure Departure Impression: Primary Impression: Adverse effects of medication Qualified Codes: T50.905A - Adverse effect of unspecified drugs, medicaments and biological substances, initial encounter Disposition: HOME, SELF-CARE Condition: STABLE Referrals: ROSS RABAGO APRN (PCP) Patient Instructions: Methylprednisolone tablets Additional Instructions: Stop taking the Medrol Dosepak that was prescribed. Follow-up with your primary care doctor on Wednesday as planned. Return to the ER if your symptoms worsen. Justicifation of Admission Dx: Justifications for Admission: Justification of Admission Dx: N/A CHEMO WRIGHT APRN Feb 22, 2020 20:49
== END 2020-02-22 21:18 | disposition home or self-care (01) ==
LOC: ER 18:11
DX: R07.0 Pain in throat (principal); T38.0X5A Adverse effect of glucocorticoids and synthetic analogues, initial encounter; R59.9 Enlarged lymph nodes, unspecified; F17.200 Nicotine dependence, unspecified, uncomplicated; Z88.5 Allergy status to narcotic agent; Z88.8 Allergy status to other drugs, medicaments and biological substances; Z98.890 Other specified postprocedural states; Z90.89 Acquired absence of other organs; Y92.89 Other specified places as the place of occurrence of the external cause
CPT/HCPCS: 99282

== ENCOUNTER 2020-03-12 22:55 | Emergency (ER) | payer OTHER ==
[~2020-03-12] VITALS: Ht 160 cm; Wt 64.4 kg
[2020-03-12 23:27] LABS: BILIRUBIN,URINE NEGATIVE (NEG); CLARITY,URINE CLEAR; COLOR,URINE YELLOW; NITRITE,URINE NEGATIVE (NEG); PROTEIN,URINE NEGATIVE (NEG-TRACE); UROBILINOGEN,URINE 0.2 mg/dL (0.2 mg/dL)
[2020-03-12 23:33] LABS: BACTERIA,URINE MODERATE /HPF (0-FEW); RBC,URINE OCC /HPF (0-2); SQUAMOUS EPITHELIAL CELL,UR MANY /LPF
[2020-03-12] MEDS ORDERED: KETOROLAC 30 MG/ML VIAL. ONE (23:54)
[2020-03-12] MEDS ORDERED: ONDANSETRON PF 4 MG/2 ML VIAL. ONE (23:54)
[2020-03-12 23:56] LABS: BASO # 0.1 x10^3/uL (0.0-0.2); BASO % 1 % (0-3); EOS # 0.1 x10^3/uL (0.0-0.7); EOS % 1 % (0-3); HEMATOCRIT 36.2 % (36.0-47.0); HEMOGLOBIN 12.7 g/dL (12.0-15.5); LYMPH # 2.5 x10^3/uL (1.0-4.8); LYMPH % 26 % (24-48); MEAN CORPUSCULAR HEMOGLOBIN 33 pg (25-35); MEAN CORPUSCULAR HGB CONC 35 g/dL (31-37); MEAN CORPUSCULAR VOLUME 94 fL (79-100); MONO # 0.6 x10^3/uL (0.0-1.1); MONO % 6 % (0-9); NEUT # 6.2 x10^3/uL (1.8-7.7); NEUT % 66 % (31-73); PLATELET COUNT 208 x10^3/uL (140-400); RED BLOOD COUNT 3.88 x10^6/uL (3.50-5.40); RED CELL DISTRIBUTION WIDTH 13.9 % (11.5-14.5); WHITE BLOOD COUNT 9.4 x10^3/uL (4.0-11.0)
[2020-03-13] MEDS ORDERED: ONDANSETRON PF 4 MG/2 ML VIAL. IVP ONE
[2020-03-13] MEDS ORDERED: KETOROLAC 30 MG/ML VIAL. IVP ONE
[2020-03-13 00:24] LABS: CALCIUM 9.1 mg/dL (8.5-10.1); CREATININE 0.8 mg/dL (0.6-1.0); GFR 75.9; POTASSIUM 3.3 mmol/L (3.5-5.1)
[2020-03-13 00:29] LABS: ALBUMIN 3.7 g/dL (3.4-5.0); ALBUMIN/GLOBULIN RATIO 1.4 (1.0-1.7); TOTAL BILIRUBIN 0.3 mg/dL (0.2-1.0); TOTAL PROTEIN 6.4 g/dL (6.4-8.2)
[2020-03-13] MEDS ORDERED: fentaNYL PF VIAL 100 MCG/2 ML VIAL IVP ONE (00:45)
[2020-03-13] MEDS ORDERED: HYDR-3164 PO (01:03)
--- NOTE | 2020-03-13 01:10 | PHYS DOC ---
Past Medical History Past Medical History: Diabetes-Type II, High Cholesterol, Seizure Additional Past Medical Histor: epilepsy, kidney infections, shingles, pinched nerve in neck, FATTY LIVER Past Surgical History: Appendectomy, Additional Past Surgical Histo: L. lung collapsed Smoking Status: Current Every Day Smoker Alcohol Use: None Drug Use: None General Adult EDM: Chief Complaint: PAIN ON URINATION HPI: HPI: Patient is a 49 year old male presents with chief complaint of lower suprapubic abdominal discomfort associated with nausea onset yesterday. Patient reports she was seen for the same complaint on night at [facility]. She was diagnosed with a urinary tract infection and placed on Keflex. Patient states only a urinalysis was performed and she was told she had a urinary tract infection. Patient states she reviewed the results and saw that she had ketones and glucose in her urine. Patient states she was upset but no other test were performed. Patient states she has suprapubic discomfort associated with dysuria as well as nausea. Patient has been taking Ultram with minimal relief. Patient tells me she has a history of frequent urinary tract infections with previous urosepsis. Patient is under the care of urologist but has not followed up with. Review of Systems: Review of Systems: Constitutional: Denies fever or chills. [] Eyes: Denies change in visual acuity. [] HENT: Denies nasal congestion or sore throat. [] Respiratory: Denies cough or shortness of breath. [] Cardiovascular: Denies chest pain or edema. [] GI: Denies abdominal pain, nausea, vomiting, bloody stools or diarrhea. [] : Positive dysuria positive pelvic discomfort no vaginal bleeding no vaginal discharge Musculoskeletal: Denies back pain or joint pain. [] Integument: Denies rash. [] Neurologic: Denies headache, focal weakness or sensory changes. [] Endocrine: Denies polyuria or polydipsia. [] Lymphatic: Denies swollen glands. [] Psychiatric: Denies depression or anxiety. [] Heart Score: Risk Factors: Risk Factors: DM, Current or recent (<one month) smoker, HTN, HLP, family history of CAD, obesity. Risk Scores: Score 0 - 3: 2.5% MACE over next 6 weeks - Discharge Home Score 4 - 6: 20.3% MACE over next 6 weeks - Admit for Clinical Observation Score 7 - 10: 72.7% MACE over next 6 weeks - Early Invasive Strategies Current Medications: Current Medications Medications (Trade) Dose Ordered Sig/[facility] Start Time Stop Time Status Last Admin Dose Admin Fentanyl Citrate (Fentanyl 2ml Vial) 25 mcg 1X ONCE 03/13/20 00:45 03/13/20 00:46 DC 03/13/20 00:46 25 MCG Ketorolac Tromethamine (Toradol 30mg Vial) 30 mg STK-MED ONCE 03/12/20 23:54 03/12/20 23:54 DC Ondansetron HCl (Zofran) 4 mg STK-MED ONCE 03/12/20 23:54 03/12/20 23:54 DC Allergies: Allergies: Allergies Coded Allergies Type Severity Reaction Last Updated Verified carbamazepine Allergy Intermediate MUSCLE PAIN 08/08/14 Yes codeine Allergy Intermediate rash 08/08/14 Yes Physical Exam: PE: Constitutional: Well developed, well nourished, no acute distress, non-toxic appearance. [] HENT: Normocephalic, atraumatic, bilateral external ears normal, oropharynx moist, no oral exudates, nose normal. [] Eyes: EOMI, conjunctiva normal, no discharge. [] Neck: Normal range of motion, no tenderness, supple, no stridor. [] Cardiovascular:Heart rate regular rhythm, no murmur [] Lungs & Thorax: No respiratory distress Abdomen: Bowel sounds normal, soft, no tenderness, no masses, Skin: Warm, dry, no erythema, no rash. [] Back: No tenderness, no CVA tenderness. [] Extremities: No tenderness, no cyanosis, no clubbing, ROM intact, Neurologic: Alert and oriented X 3, normal motor function, normal sensory function, no focal deficits noted. [] Psychologic: Affect normal, judgement normal, mood normal. [] Current Patient Data: Labs: Laboratory Tests Test 03/12/20 23:15 03/12/20 23:50 03/13/20 00:05 Urine Collection Type Unknown Urine Color Yellow Urine Clarity Clear Urine pH 7.0 (<5.0-8.0) Urine Specific [place] <=1.005 (1.000-1.030) Urine Protein Negative mg/dL (NEG-TRACE) Urine Glucose (UA) Negative mg/dL (NEG) Urine Ketones (Stick) Negative mg/dL (NEG) Urine Blood Trace (NEG) Urine Nitrite Negative (NEG) Urine Bilirubin Negative (NEG) Urine Urobilinogen Dipstick 0.2 mg/dL (0.2 mg/dL) Urine Leukocyte Esterase Negative (NEG) Urine RBC Occ /HPF (0-2) Urine WBC 5-10 /HPF (0-4) Urine Squamous Epithelial Cells Many /LPF Urine Bacteria Moderate /HPF (0-FEW) White Blood Count 9.4 x10^3/uL (4.0-11.0) Red Blood Count 3.88 x10^6/uL (3.50-5.40) Hemoglobin 12.7 g/dL (12.0-15.5) Hematocrit 36.2 % (36.0-47.0) Mean Corpuscular Volume 94 fL (79-100) Mean Corpuscular Hemoglobin 33 pg (25-35) Mean Corpuscular Hemoglobin Concent 35 g/dL (31-37) Red Cell Distribution Width 13.9 % (11.5-14.5) Platelet Count 208 x10^3/uL (140-400) Neutrophils (%) (Auto) 66 % (31-73) Lymphocytes (%) (Auto) 26 % (24-48) Monocytes (%) (Auto) 6 % (0-9) Eosinophils (%) (Auto) 1 % (0-3) Basophils (%) (Auto) 1 % (0-3) Neutrophils # (Auto) 6.2 x10^3/uL (1.8-7.7) Lymphocytes # (Auto) 2.5 x10^3/uL (1.0-4.8) Monocytes # (Auto) 0.6 x10^3/uL (0.0-1.1) Eosinophils # (Auto) 0.1 x10^3/uL (0.0-0.7) Basophils # (Auto) 0.1 x10^3/uL (0.0-0.2) Sodium Level 133 mmol/L (136-145) L Potassium Level 3.3 mmol/L (3.5-5.1) L Chloride Level 98 mmol/L (98-107) Carbon Dioxide Level 26 mmol/L (21-32) Anion Gap 9 (6-14) Blood Urea Nitrogen 8 mg/dL (7-20) Creatinine 0.8 mg/dL (0.6-1.0) Estimated GFR (Cockcroft-Gault) 75.9 BUN/Creatinine Ratio 10 (6-20) Glucose Level 107 mg/dL (70-99) H Calcium Level 9.1 mg/dL (8.5-10.1) Total Bilirubin 0.3 mg/dL (0.2-1.0) Aspartate Amino Transferase (AST) 14 U/L (15-37) L Alanine Aminotransferase (ALT) 36 U/L (14-59) Alkaline Phosphatase 69 U/L (46-116) Total Protein 6.4 g/dL (6.4-8.2) Albumin 3.7 g/dL (3.4-5.0) Albumin/Globulin Ratio 1.4 (1.0-1.7) Laboratory Tests 03/12/20 23:50 Laboratory Tests 03/13/20 00:05 Vital Signs: Vital Signs Date Time Temp Pulse Resp B/P (MAP) Pulse Ox O2 Delivery O2 Flow Rate FiO2 03/13/20 00:46 18 96 Room Air 03/13/20 00:09 98.0 96 98.0 03/12/20 23:09 174/73 (106) EKG: EKG: [] Radiology/Procedures: Radiology/Procedures: [] Course & Med Decision Making: Course & Med Decision Making Pertinent Labs and Imaging studies reviewed. (See chart for details) [] Was evaluated for chief complaint. Work-up consisted of laboratory analysis. Results reviewed and discussed with patient. Patient's urine without any ketones or glucose. WBC nitrates leukocyte Estrace negative. There was bacteria present. Patient's kidney function within normal limits. Patient's potassium slightly low 3.3. Patient without a leukocytosis. Treatment included Toradol with minimal relief. Patient was then redosed with fentanyl with improvement. Patient advised to continue taking her Keflex until completion. Patient states her Ultram is not helping with her pain. Will prescribe patient [place]. Patient is instructed to follow-up with her primary care physician or her urologist. Patient without any episodes of vomiting in the emergency department. Dragon Disclaimer: Dragon Disclaimer: This electronic medical record was generated, in whole or in part, using a voice recognition dictation system. Departure Departure Impression: Primary Impression: Dysuria Additional Impression: History of UTI Disposition: HOME, SELF-CARE Condition: STABLE Referrals: ROSS RABAGO APRN (PCP) Patient Instructions: Urinary Tract Infection Scripts Hydrocodone/Apap 5-325 (NORCO 5-325 TABLET) 1 Each Tablet 1 TAB PO PRN Q6HRS PRN for PAIN, #14 TAB 0 Refills Prov: CHARLI CHAUDHRY DO 03/13/20 Justicifation of Admission Dx: Justifications for Admission: Justification of Admission Dx: N/A CHARLI CHAUDHRY DO Mar 13, 2020 01:09
[2020-03-13 01:27] VITALS: BP 137/72
== END 2020-03-13 01:30 | disposition home or self-care (01) ==
LOC: ER 22:55
DX: R30.0 Dysuria (principal); R11.0 Nausea; E11.9 Type 2 diabetes mellitus without complications; E78.00 Pure hypercholesterolemia, unspecified; F17.200 Nicotine dependence, unspecified, uncomplicated; Z90.89 Acquired absence of other organs; Z98.890 Other specified postprocedural states; Z88.5 Allergy status to narcotic agent; Z88.8 Allergy status to other drugs, medicaments and biological substances
CPT/HCPCS: 36415; 80053; 81001; 85025; 87086; 96374; 96375; 99285; J1885; J2405; J3010

== ENCOUNTER → 2020-04-01 | Outpatient (CLI) | payer OTHER ==
[2020-03-13 01:27] VITALS: BP 137/72
--- NOTE | 2020-04-01 15:56 | RAD ---
Ultrasound study of the soft tissues of the neck Clinical indications: Palpable bilateral neck nodules FINDINGS: Sonography of the soft tissues of the neck was performed. In the right submandibular area, 2 lymph nodes are seen one measuring 10 mm in size and the other one measuring 7 mm in size. Both of these demonstrate normal lymph node sonographic architecture without abnormal thickening of the cortex. In the left submandibular area, a 12 mm lymph node is seen which demonstrates normal lymph node sonographic architecture and no abnormal thickening of the cortex. IMPRESSION: Palpable nodules correspond to lymph nodes bilaterally. Lymph nodes demonstrate normal lymph node sonographic architecture at this point in time. Therefore, recommend continued clinical follow-up with regard to any growth in size. Electronically signed by: Fabian Wolfe MD (04/01/2020 3:53 PM) [id number]
== END | disposition home or self-care (01) ==
LOC: US 14:54
PROVIDERS: ATTEND Registered Nurse
DX: R59.0 Localized enlarged lymph nodes (principal)
CPT/HCPCS: 76536